=== PATIENT | female | born 1985 | race Caucasian/White ===

== ENCOUNTER 2024-06-26 09:34 | Outpatient (CLI) | payer OTHER, SELFPAY ==
--- NOTE | ~2024-06-26 | MM_ITS ---
EXAMINATION: MM screening brittany BI w frank HISTORY: Screening TECHNIQUE: Craniocaudal and mediolateral oblique 3-D tomosynthesis images were obtained and synthetic 2-D images were generated. CAD analysis was submitted and interpreted. COMPARISON: No prior mammogram is available for comparison at this institution. BREAST PARENCHYMAL COMPOSITION: Not dense: There are scattered areas of fibroglandular density. FINDINGS: There is a 4 mm mass in the lower inner quadrant of the left breast which is high density. There is no mammographic evidence for malignancy in the right breast. IMPRESSION: 1. Left breast mass lower inner quadrant measuring 4 mm. 2. Additional mammographic views and possible breast ultrasound are recommended. BI-RADS Category 0: Incomplete: Needs additional imaging evaluation. Reviewed, dictated and finalized at location B. IMPRESSION: 1. Left breast mass lower inner quadrant measuring 4 mm. 2. Additional mammographic views and possible breast ultrasound are recommended . BI-RADS Category 0: Incomplete: Needs additional imaging evaluation.
== END 2024-06-26 09:35 | disposition home or self-care (01) ==
PROVIDERS: PCP Internal Medicine; Visit Provider Obstetrics & Gynecology
DX: Z12.31 Encounter for screening mammogram for malignant neoplasm of breast (principal); R92.8 Other abnormal and inconclusive findings on diagnostic imaging of breast
CPT/HCPCS: 77063; 77067

== ENCOUNTER 2024-07-21 10:20 | Outpatient (CLI) | payer OTHER, SELFPAY ==
--- NOTE | ~2024-07-21 | MMUS_ITS ---
EXAMINATION: MM diagnostic brittany LT w frank, US breast LT limited HISTORY: Left breast mass TECHNIQUE: Additional 3-D tomosynthesis images of the left breast were performed and synthetic 2-D im ages were generated. CAD analysis was submitted and interpreted. High resolution limited left breast ultrasound was performed. COMPARISON: 06/26/2024 BREAST PARENCHYMAL COMPOSITION:Not Dense. There are scattered areas of fibroglandular density. FINDINGS: MAMMOGRAPHIC FINDINGS: Spot compression views confirm a persistent 4 mm mass at the inner left breast. ULTRASOUND: At the 11:00 position left breast, 7 cm from the nipple, there is a 4 mm round circumscribed hypoecho ic solid mass. IMPRESSION: 4 mm probable benign left breast mass, as detailed above. 6 month follow-up ultrasound recommended t o reassess. BI-RADS category 3, probably benign findings. Reviewed, dictated and finalized at [facility]. IMPRESSION: 4 mm probable benign left breast mass, as detailed above. 6 month follow-up ul trasound recommended to reassess. BI-RADS category 3, probably benign findings.
== END 2024-07-21 10:21 | disposition home or self-care (01) ==
LOC: ANHIMG 10:21
PROVIDERS: PCP Internal Medicine; Visit Provider Obstetrics & Gynecology
DX: N63.20 Unspecified lump in the left breast, unspecified quadrant (principal); R92.8 Other abnormal and inconclusive findings on diagnostic imaging of breast
CPT/HCPCS: 76642; 77061; 77065; G0279

== ENCOUNTER 2025-01-18 10:24 | Outpatient (CLI) | payer OTHER, SELFPAY ==
--- NOTE | ~2025-01-18 | US_ITS ---
US breast LT limited 01/18/2025 10:43 Indication: Follow-up left breast mass Procedure: High-resolution Limited ultrasound of the left breast Comparison: 07/21/2024 and 06/26/2024 Findings: At 11:00, 7 cm from the nipple there is an oval parallel oriented hypoechoic 3 mm mass with low-level internal echoes, posterior shadowing and no internal vascularity, stable compared with stefan or examination allowing for differences of technique. Impression: 1: Stable likely benign left breast mass measuring 3 mm at 11:00, 7 cm from the nipple. BI-RADS CATEGORY 3-PROBABLY BENIGN FINDING RECOMMENDATION: Six-month follow-up Limited left breast ultrasound and bilateral mammogram recommende d. Reviewed, dictated and finalized at location B. Impression: 1: Stable likely benign left breast mass measuring 3 mm at 11:00, 7 cm from the nipple. BI-RADS CATEGORY 3-PROBABLY BENIGN FINDING RECOMMENDATION: Six-month follow-up Limited left breast ultrasound and bilatera l mammogram recommended.
--- OUTSIDE RECORDS SUMMARY | 2025-01-18 12:30 | XMS_ITS | Data Portability ---
Author Organization [facility] [place] Address [address] [place] [address] Care Team Providers Care Pressure Tester Name Role Phone ZAKIYA MYRICK Primary Care Provider [phone] Assessment No assessment recorded. Plan of Treatment Reminders Order Date Submit Date Provider Last Modified By Organization Details Last Modified Time Details Appointments None recorded. Lab None recorded. Referral None recorded. Procedures None recorded. Surgeries None recorded. Imaging None recorded. Medication Orders Xulane 150 mcg-35 mcg/24 hr transderm al patch 2019 020 [facility], [address] [place] [address], [id number], 0 11:16:51 Patient TargetsNo targets recorded. Patient InstructionsNo instructions recorded. Reason for Referral None Reported. Procedures Surgical History Date Name Laterality Status Provider Name and Address Organization Details Recorded Time 11/04/2016 Date [facility]2020 10:53:51 11/04/[address] [facility] 03/25/2020 10:33:11 Imaging Results None recorded. Procedure Notes None recorded. Medical Equipment None Reported. Medications Name Sig Start Date Stop Date Status Note LastModified by Organization Details LastModified Time Topamax 200 mg tablet active Not Available Not Available No t Available cetirizine 10 mg tablet active Not Available Not Available No t Available azithromycin 250 mg tablet 03/25 completed Not Available Not Available Not Available ofloxacin 0.3 % eye drops active Not Available Not Available Not Available cyanocobalami n (vit B-12) 1,000 mcg tablet Take by oral route. active Not Available Not Available No t Available Calcium Antacid 200 mg (as calcium carbonate 500 mg) chewable tablet active Not Available Not Available Not Available divalproex 500 mg tablet,delaye d release 03/25 completed Not Available Not Available Not Available ketorolac 0.5 % eye drops active Not Available Not Available Not Available Deep Sea Nasal 0.65 % spray aerosol 03/25 completed Not Available Not Available Not Available famotidine 20 mg tablet Take 1 tablet twice a day by oral route. active Not Available Not Available No t Available prednisolone acetate 1 % eye drops,suspens ion active Not Available Not Available Not Available clonazepam 2 mg tablet active Not Available Not Available No t Available ibuprofen 400 mg tablet Take 1 tablet every 4 hours by oral route. active Not Available Not Available No t Available montelukast 10 mg tablet active Not Available Not Available Not Available polyethylene glycol 3350 17 gram/dose oral powder active Not Available Not Available Not Available fluticasone propionate 50 mcg/actuation nasal spray,suspens ion active Not Available Not Available Not Available Topamax 100 mg tablet active Not Available Not Available No t Available clindamycin 1 % lotion active Not Available Not Available Not Available Daily-Dali tablet active Not Available Not Available Not Available acetaminophen active Not Available Not Available Not Available Depakote active Not Available Not Avai lable Not Available nystatin-tria mcinolone active Not Available Not Available No t Available bismuth subsalicylate active Not Available Not Availabl e Not Available adapalene active Not Available Not Marika ilable Not Available Vitamin D3 active Not Available Not Av ailable Not Available norelgestromi n-ethin.estra diol active Not Available Not Available Not Available Mucinex active Not Available Not Avail able Not Available Simply Saline 0.9 % nasal spray aerosol Take by nasal route. active Not Available Not Available No t Available Keppra 1,000 mg tablet active Not Available Not Available No t Available Refresh Dry Eye Therapy active Not Available Not Available Not Available Banzel 400 mg tablet active Not Available Not Available Not Available Xulane 150 mcg-35 mcg/24 hr transdermal patch Apply patch to skin once weekly for 3 weeks then leave off for 1 week 2019 active Not Available Not Available Not Avai lable Vitals Date Recorded Body height Body mass index (BMI) Body weight Systolic blood pressure Diastolic blood pressure Provider Name and Address Organization Details Last Updated DateTime 03/25/2020 163.83 cm 36.2 kg/m2 28502.77 g 102 mm[Hg] 70 mm[Hg] Tresa De Jesus [facility] 0 10:53:33 Social History Question Answer Notes LastModified by [employer] Details LastModified Time Tobacco Smoking Status Never Smoker Tresa De Jesus null, [facility] 03/25/2020 10:55:51 What Is Your Level Of Alcohol Consumption? None Information not available 03/25/2020 Do You Or Have You Ever Used E-cigarettes Or Vape? Never Used Electronic Cigarettes Information not available 03/25/2020 Sex: Unknown Functional Status Question Answer Note LastModified by [employer] Details LastModified Time What is your exercise level? Moderate daily exercise bands and cycling Information not available 03/25/2020 Mental Status None recorded. Family History Relationship Description Onset Age of this Age Resolved Age Notes LastModified by Organization Details LastModified Time Mother Asthma jgumber Not available 10:57:47 Mother Family history of Allergy jgumber Not available 2019 10:58:12 Brother Asthma jgumber Not available 0 03/25/2020 10:57:47 Brother Family history of Allergy jgumber Not available 2019 10:58:12 Medical History Condition Response Allergies (Food, seasonal, environmental ) Y Other Y High Cholesterol Y Gynecological History Statement/Question Response Date of Last Pap Smear 11/04/2016 Current Control Method Tubal Ligat ion 16 Desired Control Method Patch Date of LMP 03/06/2020 Obstetrics History GPAL:G 0 P 0 0 0 0 Past Encounters Encounter ID Performer Location Encounter Start Date Encounter Closed Date Diagnosis/Indication Diagnosis SNOMED-CT Code Diagnosis ICD10 Code Diagnosis Note [id number] [place] [address] [address] 03/25/2020 10:30:59 03/25/2020 11:26:16 Uses transdermal contraception 971677576 Z79.3 We discussed that elevated triglyceri jessiac may increase risk of CV disease, but that alone is not a contraindi cation to hormonal contracept ion. Elevated LDL is a contraindi cation if LDL is >160, and her LDL very recently is 140. We discussed risks of control patch including elevated BP, [place], stroke, VTE. She and her mother expressed understand ing, and they both wish to continue patch. I spent 20 minutes face to face with patient and her mother with majority of time in counseling . Return in September for annual (appointme nt made for Sunday 09/23 at 11am in procedure room) Menorrhagia 089513397 N9 2.0 Periods well controlled on patch so she may continue it Health Concerns Section Related Observation LastModified by Organization Detai ls LastModified Time None Recorded Concern Status LastModified by Organization Details LastModified Time None Recorded Advance Directives Directive None Recorded Payers Encounter Date Sequence Insurance Name Policy Number Policy Ramachandran Covered Member ID Ramachandran Member ID Guarantor Name 03/25/2020 1 [facility] (MEDICAID HMO) [id number] Daniella Robles [id number] Daniella Robles Notes Date Note Type Note Provider Name and Address Organization Details Recorded Time 03/25/2020 text/html She had been on Xulane patch for years to regulate her cycles. [facility] refused to dillon it due to increased triglycerides, so she was off it for a few months. Periods were monthly lastin 7 days and very heavy 3-[address] 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 She has never been sexually active. Triglycerides have improved. LDL is mildly elevated at 140 recently. No pelvic pain [address] frey [facility] 03/25/2020 11:28:16 OBGyn Episode No OBEpisode recorded.
--- OUTSIDE RECORDS SUMMARY | 2025-01-18 12:31 | XMS_ITS | Encounter Summary ---
Author Organization [facility] Address [address] [place] [address] Phone Care Team Providers Care Line Inspector Name Role Phone Roney Arenas MD Primary Care Provider + Encounter Details Date Type Department Care Team (Late st Contact Info) Description 10/21/[address] [facility] Neurology [address] [place] [address] Hua Balderas MD [address] [place] [address] Social History Tobacco Use Types Packs/Day Years Used Date Smoking Tobacco: Never Comments Unknown Sex and Gender Information Value Date Recorded Sex Assigned at Not on file Legal Sex Female 12:10 PM [employer] Gender Identity Not on file Sexual Orientation Not on file documented as of this encounter Plan of Treatment Not on file documented as of this encounter Visit Diagnoses Not on filedocumented in this encounter Care Teams Line Inspector Relationship Specialty Start Date End Date Roney Arenas MD PCP - General Internal Medicine 08/01/18 documented as of this encounter
--- OUTSIDE RECORDS SUMMARY | 2025-01-18 12:31 | XMS_ITS | Clinical Summary ---
Author Organization [facility] Address [address] [place] [address] Phone Care Team Providers Care Burnisher Name Role Phone ELEN WHALEN, ZAKIYA Lee Primary Care Provider [phone] NAJMA WHALEN, ANTHONY Martinez Unavailable [phone] Reason for Visit and Chief Complaint * PHONE CALL Problems Includes: Problems addressed during this encounter and other active Problems All Visits Onset Date Resolved Date Provider Condition S tatus Other specified abnormal uterine and vaginal bleeding 12/28/2019 LEANNE LUGO RN N P BC Active Last Documented On 0 11:41AM ; [facility] Hyperlipidemia 12/28/2019 LEANNE LUGO RN NP BC Active Last Documented On 0 11:39AM ; [facility] Note: 02/21/19 total chol = 215, triglyce rides = 398 Epilepsy and Recurrent Seizures 09/15/2018 POLO MILLIGAN SANDY- Active Last Documented On 8 2:09PM ; [facility] Reduced Mobility Wheelchair Bound 09/15/2018 MARCO MILLIGAN SANDY-BC Active Last Documented On 8 2:07PM ; [facility] Plan of Treatment No Plan of Treatment Recorded Assessments Includes: Assessments from this encounter No Assessments Recorded Medical Equipment - Implanted Devices Includes: Current Devices No Medical Equipment Recorded Medications Includes: Medications discussed during this encounter and other current Medications Current Medications (continue as prescribed) Neosporin + Pain/Itch/Scar 1% External Ointment 2017 Provider: Diagnosis: Last Documented On 09/15/2018 2:32PM By Frances Gurrola MA ; [facility] Rulox 116-252-26KC/5ML Oral Suspension 09/15/2018 Pr ovider: Diagnosis: 30ML BY MOUTH EVERY 4 HOURS..MAX 5 DOSE IN 24 HO URS. Last Documented On 09/15/2018 2:30PM By Frances Gurrola MA ; [facility] Womens Multivitamin Oral Tablet 09/15/2018 Provider: Diagnosis: Last Documented On 09/15/2018 2:22PM By Frances Gurrola MA ; [facility] Vitamin D3 [id number] Oral Capsule, conventional Provider: Diagnosis: Last Documented On 09/15/2018 2:22PM By Frances Gurrola MA ; [facility] Bronson Cough Drops 6.1MG Mouth/Throat Lozenge 07/29/20 17 Provider: Diagnosis: Last Documented On 7 2:42PM By MIKE LAYTON ; [facility] DiphenhydrAMINE HCl 25MG Oral Capsule, conventional Provider: Diagnosis: Last Documented On 7 2:43PM By MIKE LAYTON ; [facility] SM Calcium Antacid 500MG Oral Tablet, chewable 017 Provider: Diagnosis: Last Documented On 7 2:39PM By MIKE LAYTON ; [facility] Cetirizine HCl 10MG Oral Tablet, chewable 07/29/2017 Provider: Diagnosis: Last Documented On 7 2:39PM By MIKE LAYTON ; [facility] Fluticasone Propionate 50MCG/ACT Nasal Suspension 07/29/2017 Provider: Diagnosis: Last Documented On 7 2:40PM By MIKE LAYTON ; [facility] Polyethylene Glycol 3350 Granules 07/29/2017 Provide r: Diagnosis: Last Documented On 7 2:40PM By MIKE LAYTON ; [facility] Vitamin B-12 1000MCG Oral Tablet 07/29/2017 Prov ider: Diagnosis: Last Documented On 7 2:40PM By MIKE LAYTON ; [facility] EQL Vitamin D3 1000UNIT Oral Capsule, conventional Provider: Diagnosis: Last Documented On 7 2:40PM By MIKE LAYTON ; [facility] Clindamycin Phosphate 1% External Gel (jelly) 07/29/20 17 Provider: Diagnosis: Last Documented On 7 2:41PM By MIKE LAYTON ; [facility] Adapalene 0.1% External Gel (jelly) 07/29/2017 Provi aren: Diagnosis: Last Documented On 7 2:41PM By MIKE LAYTON ; [facility] Benzonatate 200MG Oral Capsule, conventional 7 Provider: Diagnosis: Last Documented On 7 2:42PM By MIKE LAYTON ; [facility] Bismatrol 262MG Oral Tablet, chewable 07/29/2017 Pro vider: Diagnosis: Last Documented On 7 2:42PM By MIKE LAYTON ; [facility] Refresh Tears 0.5% Ophthalmic Solution 07/29/2017 Pr ovider: Diagnosis: Last Documented On 7 2:44PM By MIKE LAYTON ; [facility] Topamax 100MG Oral Tablet 07/29/2017 Provider: Diagnosis: Last Documented On 7 2:44PM By MIKE LAYTON ; [facility] Topamax 200MG Oral Tablet 07/29/2017 Provider: Diagnosis: Last Documented On 7 2:44PM By MIKE LAYTON ; [facility] Montelukast Sodium 10MG Oral Tablet 07/29/2017 Provi aren: Diagnosis: Last Documented On 7 2:45PM By MIKE LAYTON ; [facility] Ibuprofen 400MG Oral Tablet 07/29/2017 Provider: Diagnosis: Last Documented On 7 2:45PM By MIKE LAYTON ; [facility] Mapap 325MG Oral Tablet 07/29/2017 Provider: Diagnosis: Last Documented On 7 2:45PM By MIKE LAYTON ; [facility] Meclizine HCl 12.5MG Oral Tablet 07/29/2017 Provider : Diagnosis: Last Documented On 7 2:46PM By MIKE LAYTON ; [facility] Mi-Acid [id number]/5ML Oral Suspension 07/29/2017 Provider: Diagnosis: Last Documented On 7 2:46PM By MIKE LAYTON ; [facility] Polyethylene Glycol 3350 Powder 07/29/2017 Provider: Diagnosis: Last Documented On 7 2:46PM By MIKE LAYTON ; [facility] Nystatin-Triamcinolone 857349-1.1UNIT/GM-% External Cr eam 07/29/2017 Provider: Diagnosis: Last Documented On 7 2:47PM By MIKE LAYTON ; [facility]S Triple Antibiotic External Ointment 07/29/2017 P rovider: Diagnosis: Last Documented On 7 2:47PM By MIKE LAYTON ; [facility] Banzel 400MG Oral Tablet 07/29/2017 Provider: Diagnosis: Last Documented On 7 2:38PM By MIKE LAYTON ; [facility] Mucinex 600MG Oral Tablet, extended-release 12 hour Provider: Diagnosis: Last Documented On 7 2:43PM By MIKE LAYTON ; [facility] Keppra 100MG/ML Oral Solution 07/29/2017 Provider: Diagnosis: Last Documented On 7 2:43PM By MIKE LAYTON ; [facility] Divalproex Sodium 500MG Oral Tablet, enteric coated Provider: Diagnosis: Last Documented On 7 2:43PM By MIKE LAYTON ; [facility] ClonazePAM 2MG Oral Tablet 07/29/2017 Provider: Diagnosis: Last Documented On 7 2:42PM By MIKE MATSON Gricelda ; [facility] Medications Administered Includes: Administered Medications from this encounter No Administered Medications Recorded Results Includes: Results discussed during this encounter No Results Recorded For Specified Dates History of Present Illness Includes: History of Present Illness from this encounter No History of Present Illness Recorded Social History No Social History Recorded - Smoking Status Unknown Medical History Includes: Medical History addressed during this encounter No Medical History Recorded Family History Includes: Family History addressed during this encounter No Family History Recorded Review of Systems Includes: Review of Systems from this encounter No Review of Systems Recorded Mental Status Includes: Mental Status from this encounter No Mental Status Recorded Functional Status Includes: Functional Status from this encounter No Functional Status Recorded Physical Exam Includes: Physical Exam from this encounter No Physical Exam Recorded Encounters Encounter Provider Location Date Check-In Time Check-Out Time Diagnosis * PHONE CALL JAXON GARCIA MD 08/20/2017 3:32PM 11:59PM Insurance Includes: Active Insurance Policies Plan Name Member ID Group # Subscriber Relationship Effect ayah Dates 1 - [facility] [id number] GARY EASON Self Clinical Notes Includes: Clinical Notes from this encounter No Clinical Notes Recorded
--- OUTSIDE RECORDS SUMMARY | 2025-01-18 12:31 | XMS_ITS | Clinical Summary ---
Author Organization [facility] Address [address] [place] [address] Care Team Providers Care Instrument Mechanics Supervisor Name Role Phone Roney Arenas MD Primary Care Provider + Allergies Active Allergy Reactions Criticality Noted Date Comments Lorazepam Hallucinations Medium 03/05/2014 Medications adapalene (DIFFERIN) 0.1 % gel Apply topically. Active diphenhydrAMINE (BENADRYL) 25 mg capsule 12/30/19 18 Active benzonatate (TESSALON) 200 mg capsule Active bismuth subsalicylate (PEPTO-BISMOL) suspension Active calcium carbonate-simeth icone 750-80 mg tablet,chewable Take by mouth Active cetirizine (ZyrTEC) 10 mg tablet Take 1 tablet (10 mg total) by mouth Active cholecalciferol (VITAMIN D-3) 1,000 unit tablet 06/23/20 18 Active clindamycin (CLEOCIN T) 1 % lotion Apply topically. Active cyanocobalamin (Vitamin B-12) 1,000 mcg tabletIndication s:Prevention of Vitamin B12 Deficiency Take by mouth. Acti ve fluticasone (FLONASE) 50 mcg/actuation nasal spray Administer into each nostril. Active ibuprofen (ADVIL,MOTRIN) 400 mg tablet Take 1 tablet (400 mg total) by mouth every 6 (six) hours as needed Active meclizine (ANTIVERT) 25 mg tablet Active montelukast (SINGULAIR) 10 mg tablet 01/21/20 18 Active multivitamin tabletIndication s:Vitamin Deficiency Prevention 01/21/20 18 Active mag hydrox/aluminum hyd/simeth (RULOX ORAL) Active norelgestromin-e thin.estradiol (ORTHO EVRA) 150-35 mcg/24 [address]Ind[address] e[address] Contraception Place on the skin Active nystatin-triamci nolone creamIndications :cutaneous candidiasis Apply topically. Active polyethylene glycol (MIRALAX) 17 gram/dose powder Active acetaminophen (TYLENOL) 325 mg tablet Active wheelchair deviceIndication s:seizure disorder,Unstead y Gait Manual wheelchair 1 each 11/15/19 21 Active sodium chloride 0.9 % aerosol,spray Administer 2 sprays into affected nostril(s) every 4 (four) hours as needed 05/16/20 20 Active calcium citrate-vitamin D3 200 mg-6.25 mcg (250 unit) tablet Take 2 tablets by mouth daily 05/16/20 20 Active cimetidine (TAGAMET) 400 mg tablet Take 1 tablet (400 mg total) by mouth 2 (two) times a day 05/20/20 20 Active guaiFENesin ER (MUCINEX) 600 mg 12 hr tablet daily as needed Active Refresh Classic, PF, 1.4-0.6 % dropperette 09/05/20 21 Active atorvastatin (LIPITOR) 10 mg tablet Take 1 tablet (10 mg total) by mouth daily 03/19/20 22 Active BanzeL 400 mg tabletIndication s:Intractable myoclonic epilepsy (HCC) TAKE 5 TABLETS (2000MG) BY MOUTH TWICE DAILY WITH FOOD FOR INTRACTABLE MYOCLONIC EPILEPSY (7AM,5PM) 310 tablet 07/16/20 24 Active Depakote 500 mg EC tabletIndication s:Intractable myoclonic epilepsy (HCC) TAKE 1 TABLET BY MOUTH TWICE DAILY FOR SEIZURES (GIVE BEFORE GETTTING OUT OF BED IN THE AM-THEN WAIT 30MINS BEFORE GETTING OUT OF BED)(7AM,8PM) *BRAND NAME ONLY* 62 tablet 07/16/20 24 Active Keppra 1,000 mg tabletIndication s:Intractable myoclonic epilepsy (HCC) TAKE 2 TABLETS (2000MG) BY MOUTH TWICE DAILY FOR INTRACTABLE MOCLONIC EPILEPSY (GIVE BEFORE GETTING OUT OF BED IN THE AM-THEN WAIT 30MIN BEFORE GETTING OUT OF BED) (7AM,8PM) 124 tablet 07/16/20 24 Active Topamax 100 mg tabletIndication s:Intractable myoclonic epilepsy (HCC) TAKE 1 TABLET BY MOUTH TWICE DAILY WITH [id number] FOR GENERALIZED EPILEPSY *BRAND NAME ONLY*(7AM,7PM) 62 tablet 11 07/16/20 24 Active omeprazole (PriLOSEC) 40 mg capsule Take 1 capsule (40 mg total) by mouth daily 03/27/20 24 Active Tab-A-Dali 400 mcg tablet 07/05/20 24 Active clonazePAM (KlonoPIN) 0.5 mg tabletIndication s:Myoclonic Epilepsy Take one tab 30 minutes prior to MRI scan. 1 tablet 08/17/20 24 Active Topamax 200 mg tabletIndication s:Intractable myoclonic epilepsy (HCC) TAKE 1 TABLET BY MOUTH TWICE DAILY FOR MYOCLONIC EPILEPSY -GIVE BEFORE GETTING OUT OF BED IN THE AM-WAIT 30MIN BEFORE GETTING OUT OF BED (BRAND NAME ONLY) (7AM,7PM) 62 tablet 11 10/06/20 24 Active clonazePAM (KlonoPIN) 2 mg tabletIndication s:Myoclonic seizure (HCC) (CONTROL CYCLE) TAKE 1 TABLET BY MOUTH TWICE DAILY FOR MYOCLONIC SEIZURES (7AM,8PM) 60 tablet 5 12/29/19 25 Active clonazePAM (KlonoPIN) 2 mg tabletIndication s:Myoclonic seizure (HCC) (CONTROL CYCLE) TAKE 1 TABLET BY MOUTH TWICE DAILY FOR MYOCLONIC SEIZURES (7AM,8PM) 60 tablet 5 07/16/20 24 2024 Discontinued Active Problems Problem Noted Date Diagnosed Date Unilateral earache 12/23/2015 Reactive depression 09/02/2015 Nuclear senile cataract 10/21/2012 Hyperlipidemia 08/02/2009 Obesity 08/02/2009 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 There is no history of epilepsy. 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 Gender Identity Not on file Sexual Orientation Not on file Obstetrics History Last Filed Vital Signs Vital Sign Reading Time Taken Comments Blood Pressure 107/74 07/24/2024 11:36 AM CDT Pulse 73 07/24/2024 11:36 AM CDT Temperature 35.8 C (96.4 F) 05/13/2020 9:53 AM CDT Respiratory Rate - - Oxygen Saturation - - Inhaled Oxygen Concentration - - Weight 77.1 kg (170 lb) 08/22/2024 10:12 AM CDT Height 162.6 cm (5' 4 ) 08/22/2024 10:12 AM CDT Body Mass Index 29.18 08/22/2024 10:12 AM CDT Plan of Treatment Health Maintenance Due Date Last Done Comments Breast Cancer Screening-Mammogram 1985 Cervical Cancer Screening 1984 Depression Screening 1984 Hepatitis C Screening 1985 Regular Well Visit/Exam 18-64 2002 Varicella Vaccines (2 of 2 - 13+ 2-dose series) 06/24/2015 05/27/2015 Covid-19 Vaccine ( season) 2024 09/22/2022, 01/06/2021, 12/09/2020 Influenza Vaccine (#1) 2024 , 07/21/2020, 07/18/2018, Additional history exists DTaP/Tdap/Td Vaccine (8 - Td or Tdap) 11/19/2028 11/19/2018, 07/29/2009, 01/30/1999, Additional history exists Hepatitis B Screening Completed 03/30/1997 , 10/30/1996, 09/25/1996 Pneumococcal vaccine <65 Aged Out 01/05/2005, 08/05 No longer eligible based on patient's age to complete this topic HPV Vaccines Completed 08/04/2007, 06/2007, 02/07/2007 Medical Devices Implanted Type Area Wool Washer Feeder Device Identifier Shelf Expiration Date Model / Serial / Lot Orthopedic Hardware Right Ankle Ankle Insurance [facility] Advance Directives For more information, please contact: [phone] Documents on File Type Date Recorded Patient Venetian Blind Worker Expl anation ADVANCE DIRECTIVE 04/20/2022 10:39 AM Vijay r of Brake Lining Driller-Medical Care Teams Instrument Mechanics Supervisor Relationship Specialty Start Date End Date Roney Arenas MD PCP - General Internal Medicine 08/01/18
--- OUTSIDE RECORDS SUMMARY | 2025-01-18 12:31 | XMS_ITS | Referral Summary ---
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 Gender Identity Not on file Sexual Orientation Not on file Last Filed Vital Signs Vital Sign Reading [...] 08/22/2024 10:12 AM CDT Plan of Treatment Not on file Medical Devices Implanted Type Area Sheet Rock Installation Helper Device Identifier Shelf Expiration Date Model / Serial / Lot Orthopedic Hardware Right Ankle Ankle Insurance [id number] [place] [address] [facility] Advance Directives For more information, please contact: [phone] Documents on File Type Date Recorded Patient Collections Rep Expl anation ADVANCE DIRECTIVE 04/20/2022 10:39 AM Vijay r of Dampener-Medical Care Teams Drive Tester Relationship Specialty Start Date End Date Roney Arenas MD PCP - General Internal Medicine 08/01/18
--- OUTSIDE RECORDS SUMMARY | 2025-01-18 12:31 | XMS_ITS | Patient Health Record ---
Author Organization [facility] Orthopedics [facility] Address [address] [place], [place] [id number] Care Team Providers Care Oceanography Professor Name Role Phone Roney Arenas Primary Care Provider Unavail able Deanna Shin Unavailable [phone] ALLERGIES Allergen (clinical drug ingredient) Drug/Non Drug Allergy documented on EMR Reaction Allergy Type Onset Date Status lorazepam Ativan Unknown Drug Allergy Active REASON FOR REFERRAL No Information MEDICATIONS Medication SIG (Take, Route, Frequency, Duration) Notes Start Date End Date Status Divalproex Sodium Ac tive Xulane Active Calcium Carbonate Ac tive One Daily For Women Active Singulair Active Polyethylene Glycol 3350 Active Topamax Active Keppra Active Banzel Active clonazePAM Active SOCIAL HISTORY Sex Assigned At : Social History Observation Description Sex Assigned At Unknown PROBLEMS Problem Type ICD Code Onset Dates Problem Status W/U Status Risk SNOMED Code Notes Problem Pain in joint, ankle and foot (719.47) Active confirmed Arthralgia of the ankle and/or foot (520116797) Problem 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) Active confirmed 858445 Problem Right ankle instability (M25.371) Active confirmed 547037 Problem Acute right ankle pain (M25.571) Active confirmed Arthralgia of the ankle and/or foot (013100610) Problem Closed fracture of left ankle, initial encounter (S82.892A) Active confirmed 23410149 Problem Closed fracture of left ankle with routine healing, subsequent encounter (S82.892D) Active confirmed 05704488 Problem Other closed fracture of distal end of right fibula with routine healing, subsequent encounter (S82.831D) Active confirmed 421034740 PLAN OF TREATMENT Pending Test Test Name Order Date X ray : Ankle, left, 3 11/05/2018 X ray : Ankle, left, 3 01/07/2019 X ray : Ankle, left, 3 08/13/2018 X ray : Ankle, left, 3 05/09/2021 X ray : Ankle, left, 3 08/27/2018 X ray : Ankle, left, 3 05/13/2019 X ray : Ankle, left, 3 09/17/2018 X ray : Ankle, left, 3 10/08/2018 X ray : Ankle, left, 3 05/09/2020 X ray : Ankle, right, 3 05/09/2021 X ray : Ankle, right, 3 05/13/2019 X ray : Ankle, right, 3 05/09/2020 MEDICAL (GENERAL) HISTORY Medical History History ICD Code seizures Left distal fibula fracture 08/2018 Surgical History Surgery Date(Month/Year) Right Ankle - Open reduction and interna l fixation of distal fibula 09/2007 Hospitalization History Reason Date(Month/Year) same as surgeries
--- OUTSIDE RECORDS SUMMARY | 2025-01-18 12:31 | XMS_ITS ---
Care Plan - [facility] Created on: January 18, 2025 GARY EASON : 1985 Sex: Female Author Organization [facility] Address [address] [place] [address] Phone Care Team Providers Care Mexican Food Machine Tender Name Role Phone ELEN WHALEN, ZAKIYA Lee Primary Care Provider [phone] NAJMA WHALEN, ANTHONY Martinez Unavailable [phone]
--- OUTSIDE RECORDS SUMMARY | 2025-01-18 12:31 | XMS_ITS | Clinical Summary ---
Author Organization [facility] Address [address] [place] [address] Phone Care Team Providers Care Slab Conditioner Supervisor Name Role Phone ELEN WHALEN, ZAKIYA Lee Primary Care Provider [phone] NAJMA WHALEN, ANTHONY Martinez Unavailable [phone] Reason for Visit and Chief Complaint visit for: contraceptive management - The Chief Complaint is: HRT consult Pt using patch to controlcycles for past several years d/t menorrhagia and has experienced significant reduction in seizuressince beginning rx. PCP previously was prescribing rx., pt. now here for consult. Pt. previously tried combined OCP for menorrhagia sx w/o success, resulting in constant irregular bleeding. Pt. and mom deny trying DMPA d/t potential BTB and have been successful in regulating timely cycles lasting 4-5 days. Pt. admits the most sanitary items she uses 2 items/24 hours. Denies reportable CV warningsx. ass/with combined contraceptive use. Dysmenorrhea relief w/OTC Ibuprofen. Pt is able to ambulate, exercises 30 min. daily with recumbant bike as well as exercise bands Problems Includes: Problems addressed during this encounter and other active Problems Current Visit Onset Date Resolved Date Provider Conditio n Status Other specified abnormal uterine and vaginal bleeding 12/28/2019 LEANNE LUGO RN WHN P BC Active Last Documented On 0 11:41AM ; [facility] Hyperlipidemia 12/28/2019 LEANNE LEVINENP BC Active Last Documented On 0 11:39AM ; [facility] Note: 02/21/19 total chol = 215, triglyce rides = 398 Past Visits Onset Date Resolved Date Provider Condition Status Epilepsy and Recurrent Seizures 09/15/2018 POLO [place] [facility] Active Last Documented On 8 2:09PM ; [facility] Reduced Mobility Wheelchair Bound 09/15/2018 MARCO Madison [facility] Active Last Documented On 8 2:07PM ; [facility] Plan of Treatment Education and Decision Aids were provided during visit for: Patient counseling : Use of contraceptives discussed in detail including rare occurrence of heart attack, stroke, and leg clots. Patient understands that smoking increases the risk of serious side effects with any steroid-based contraceptive method Last Documented On 0 11:26AM ; [facility] control consent review ed and signed Last Documented On 0 11:28AM ; [facility] Assessments Includes: Assessments from this encounter Findings - Hyperlipidemia - Last Documented On 12/28/2019 1:02PM ; [facility] - Encounter for contraceptive surveillance, unspecified - Last Documented On 12/28/2019 1:02PM ; [facility] Instructions Includes: Instructions from this encounter Education and Decision Aids were provided during visit for: Patient counseling : Use of contraceptives discussed in detail including rare occurrence of heart attack, stroke, and leg clots. Patient understands that smoking increases the risk of serious side effects with any steroid-based contraceptive method Last Documented On 0 11:26AM ; [facility] control consent review ed and signed Last Documented On 0 11:28AM ; [facility] Medical Equipment - Implanted Devices Includes: Current Devices No Medical Equipment Recorded Medications Includes: Medications discussed during this encounter and other current Medications Discontinued / Stopped on this date on 09/15/2018 Diabetic Siltussin JOHN-Na 10 0MG/5ML Oral Liquid (not specified) Provider: Diagnosis: Last Documented On 0 11:08AM By LEANNE CASANOVA ; [facility] Diabetic Siltussin JOHN-Na 10 0MG/5ML Oral Liquid (not specified) Provider: Diagnosis: Last Documented On 0 10:36AM By LEANNE CASANOVA ; [facility] Current Medications (continue as prescribed) Neosporin + Pain/Itch/Scar 1% External Ointment 2017 Provider: Diagnosis: Last Documented On 09/15/2018 2:32PM By Frances Gurrola MA ; [facility] Rulox [id number]/5ML Oral Suspension 09/15/2018 Pr ovider: Diagnosis: 30ML BY MOUTH EVERY 4 HOURS..MAX 5 DOSE IN 24 HO URS. Last Documented On 09/15/2018 2:30PM By Frances Gurrola MA ; [facility] Womens Multivitamin Oral Tablet 09/15/2018 Provider: Diagnosis: Last Documented On 09/15/2018 2:22PM By Frances Gurrola MA ; [facility] Vitamin D3 [id number] Oral Capsule, conventional Provider: Diagnosis: Last Documented On 09/15/2018 2:22PM By Frances Gurrola MA ; [facility] Bronson Cough Drops 6.1MG Mouth/Throat Lozenge 07/29/20 17 Provider: Diagnosis: Last Documented On 7 2:42PM By MIKE LAYTON ; [facility] DiphenhydrAMINE HCl 25MG Oral Capsule, conventional Provider: Diagnosis: Last Documented On 7 2:43PM By MIKE LAYTON ; [facility] SM Calcium Antacid 500MG Oral Tablet, chewable 017 Provider: Diagnosis: Last Documented On 7 2:39PM By MIKE LAYTON ; [facility] Cetirizine HCl 10MG Oral Tablet, chewable 07/29/2017 Provider: Diagnosis: Last Documented On 7 2:39PM By MIKE LAYTON ; [facility] Fluticasone Propionate 50MCG/ACT Nasal Suspension 07/29/2017 Provider: Diagnosis: Last Documented On 7 2:40PM By MIKE LAYTON ; [facility] Polyethylene Glycol 3350 Granules 07/29/2017 Provide r: Diagnosis: Last Documented On 7 2:40PM By MIKE LAYTON ; [facility] Vitamin B-12 1000MCG Oral Tablet 07/29/2017 Prov ider: Diagnosis: Last Documented On 7 2:40PM By MIKE LAYTON ; [facility] EQL Vitamin D3 1000UNIT Oral Capsule, conventional Provider: Diagnosis: Last Documented On 7 2:40PM By MIKE LAYTON ; [facility] Clindamycin Phosphate 1% External Gel (jelly) 07/29/20 Provider: Diagnosis: Last Documented On 7 2:41PM By MIKE LAYTON ; [facility] Adapalene 0.1% External Gel (jelly) 07/29/2017 Provi aren: Diagnosis: Last Documented On 7 2:41PM By MIKE LAYTON ; [facility] Benzonatate 200MG Oral Capsule, conventional Provider: Diagnosis: Last Documented On 7 2:42PM By MIKE LAYTON ; [facility] Bismatrol 262MG Oral Tablet, chewable 07/29/2017 Pro vider: Diagnosis: Last Documented On 7 2:42PM By MIKE LAYTON ; [facility] Refresh Tears 0.5% Ophthalmic Solution 07/29/2017 Pr ovider: Diagnosis: Last Documented On 7 2:44PM By MIKE LAYTON ; [facility] Topamax 100MG Oral Tablet 07/29/2017 Provider: Diagnosis: Last Documented On 7 2:44PM By MIKE LAYTON ; [facility] Topamax 200MG Oral Tablet 07/29/2017 Provider: Diagnosis: Last Documented On 7 2:44PM By MIKE LAYTON ; [facility] Montelukast Sodium 10MG Oral Tablet 07/29/2017 Provi aren: Diagnosis: Last Documented On 7 2:45PM By MIKE LAYTON ; [facility] Ibuprofen 400MG Oral Tablet 07/29/2017 Provider: Diagnosis: Last Documented On 7 2:45PM By MIKE LAYTON ; [facility] Mapap 325MG Oral Tablet 07/29/2017 Provider: Diagnosis: Last Documented On 7 2:45PM By MIKE LAYTON ; [facility] Meclizine HCl 12.5MG Oral Tablet 07/29/2017 Provider : Diagnosis: Last Documented On 7 2:46PM By MIKE LAYTON ; [facility] Mi-Acid [id number]/5ML Oral Suspension 07/29/2017 Provider: Diagnosis: Last Documented On 7 2:46PM By MIKE LAYTON ; [facility] Polyethylene Glycol 3350 Powder 07/29/2017 Provider: Diagnosis: Last Documented On 7 2:46PM By MIKE LAYTON ; [facility] Nystatin-Triamcinolone 221994-1.1UNIT/GM-% External Cr eam 07/29/2017 Provider: Diagnosis: Last Documented On 7 2:47PM By MIKE LAYTON ; [facility] Triple Antibiotic External Ointment 07/29/2017 Vincent harrisder: Diagnosis: Last Documented On 7 2:47PM By MIKE LAYTON ; [facility] Banzel 400MG Oral Tablet 07/29/2017 Provider: Diagnosis: Last Documented On 7 2:38PM By MIKE LYATON ; [facility] Mucinex 600MG Oral Tablet, extended-release 12 hour Provider: Diagnosis: Last Documented On 7 2:43PM By MIKE LAYTON ; [facility] Keppra 100MG/ML Oral Solution 07/29/2017 Provider: Diagnosis: Last Documented On 7 2:43PM By MIKE LAYTON ; [facility] Divalproex Sodium 500MG Oral Tablet, enteric coated Provider: Diagnosis: Last Documented On 7 2:43PM By MIKE LAYTON ; [facility] ClonazePAM 2MG Oral Tablet 07/29/2017 Provider: Diagnosis: Last Documented On 7 2:42PM By MIKE LAYTON ; [facility] Medications Administered Includes: Administered Medications from this encounter No Administered Medications Recorded Vital Signs Includes: Vital Signs from this encounter Vital Name 12/28/2019 10:23A 12/28/2019 10: 15A Blood Pressure Sitting (mmHg) 112/70 Height (in) 64 64 Weight (lb) 206 Body Mass Index (kg/m2) 35.4 Body Surface Area (m2) 2.0 Last Documented: On 12/28/2019 10:27A M ; [facility] On 12/28/2019 10:15AM ; [facility] Results Includes: Results discussed during this encounter No Results Recorded For Specified Dates History of Present Illness Includes: History of Present Illness from this encounter DESTINY EASON is a 34 year old female. The patient presents for contraceptive management. See details below. - Feeling fine. - No headache. - No breast symptoms. - No bloating - No jaundice - Normal menses Social History Description Last Updated Not sexually active 12/28/2019 Last Documented On 0 1:02PM ; [facility] Not using alcohol 09/21/2019 Last Documented On 0 10:14AM ; [facility] Not using drugs 09/21/2019 Last Documented On 0 10:14AM ; [facility] Social history unchanged 09/21/2019 Last Documented On 0 10:14AM ; [facility] Smoking status : Never smoker 09/21/2019 Last Documented On 0 10:14AM ; [facility] Procedures and Surgical History Includes: Procedures from this encounter Procedures Code Diagnosis Performing Provider Service Location Service Date education and instructions Pt. and mother informed that cont. patch use w/o controlled hyperlipidemia places pt. at very high risk for CV incident, and that no further rx can be sent per Dr. Go's protocols unless significant reduction in serology results is seen. To consider progestin only rx vs. US and EMB for possible ablation Last Documented On 0 12:54PM ; [facility] evaluation of contraceptive history perf ormed Last Documented On 0 11:28AM ; [facility] education about contraception performed Last Documented On 0 11:28AM ; [facility] reporting of contraception complications performed Last Documented On 0 11:28AM ; [facility] Clinical summary provided to patient Last Documented On 0 11:26AM ; [facility] Surgical History Last Updated History of tubal ligation 2002 0 Last Documented On 0 1:02PM ; [facility] Surgical / procedural histor y ankle fracture repair 2006---fell during seizure ~tubal ligation 2002 ~ ~3 ankle fractures, 2 w/o(?) surgeries---during seizure falls ~cateract left eye 09/15/2018 Last Documented On 0 10:13AM ; [facility] Tonsillectomy 09/15/2018 Last Documented On 0 10:13AM ; [facility] Medical History Includes: Medical History addressed during this encounter Description Last Updated PRIMARY CARE PROVIDER : Dr. Arenas, neuro Dr. Hua CROOKS 12/28/2019 Last Documented On 0 1:02PM ; [facility] LMP: 12/24/2019 12/28/2019 Last Documented On 0 1:02PM ; [facility] Contraception: tubal 12/28/2019 Last Documented On 0 1:02PM ; [facility] History of Pap smear done 07/31/201712/06 Last Documented On 0 1:02PM ; [facility] Recent change in medical history having cateract surg 09-25-19 09/21/2019 Last Documented On 0 10:13AM ; [facility] Not sexually active 09/21/2019 Last Documented On 0 10:13AM ; [facility] History of hyperlipidemia due to siezure meds 09/15/2018 Last Documented On 0 10:13AM ; [facility] Pt's mother, grandmother, an d great-grandmother had condition called hemorrhaging menses ~ ~Pt maternal aunt had endometrial cancer 07/29/2017 Last Documented On 0 10:13AM ; [facility] 0 07/29/2017 Last Documented On 0 10:13AM ; [facility] Family History Includes: Family History addressed during this encounter Description Last Updated Family history unchanged 09/21/2019 Last Documented On 0 10:13AM ; [facility] Maternal aunt's history of uterine cance r maternal aunt 09/15/2018 Last Documented On 0 10:13AM ; [facility] Maternal grandmother's history of diabet es mellitus maternal grandparents 09/15/2018 Last Documented On 0 10:13AM ; [facility] Maternal grandmother's history of hypert ension maternal grandparetns 09/15/2018 Last Documented On 0 10:13AM ; [facility] Paternal grandfather's history of pure h ypercholesterolemia pgf 09/15/2018 Last Documented On 0 10:13AM ; [facility] Paternal history of family history of he art disease mgf 09/15/2018 Last Documented On 0 10:13AM ; [facility] Review of Systems Includes: Review of Systems from this encounter Head: No headache. Eyes: No vision problems. Cardiovascular: No chest pain or discomfort. Pulmonary: No dyspnea. Gastrointestinal: No nausea, no vomiting, and no abdominal pain. DENIES ARM OR LEG PAIN ON HORMONAL CONTRACEPTION. Mental Status Includes: Mental Status from this encounter No Mental Status Recorded Functional Status Includes: Functional Status from this encounter No Functional Status Recorded Physical Exam Includes: Physical Exam from this encounter Encounters Encounter Provider Location Date Check-In Time Check-Out Time Diagnosis CONSULTATION LEANNE LUGO RN NP [facility] 12/28/19 20 10:13AM 11:01AM Encounter For Contraceptive Surveillance, Unspecified,Hype rlipidemia Insurance Includes: Active Insurance Policies Plan Name Member ID Group # Subscriber Relationship Effect ayah Dates 1 - [facility] [id number] GARY EASON Self Clinical Notes Includes: Clinical Notes from this encounter No Clinical Notes Recorded
--- OUTSIDE RECORDS SUMMARY | 2025-01-18 12:31 | XMS_ITS | Clinical Summary ---
Author Organization [facility] Address [address] [place] [address] Phone Care Team Providers Care Editor Managing Director Name Role Phone ELEN WHALEN, ZAKIYA Lee Primary Care Provider [phone] NAJMA WHALEN, ANTHONY Martinez Unavailable [phone] Reason for Visit and Chief Complaint gynecologic annual exam - The Chief Complaint is: Annual exam Problems Includes: Problems addressed during this encounter and other active Problems All Visits Onset Date Resolved Date Provider Condition S tatus Other specified abnormal uterine and vaginal bleeding 12/28/2019 LEANNE LUGO RN N P BC Active Last Documented On 0 11:41AM ; [facility] Hyperlipidemia 12/28/2019 LEANNE LUGO RN NP BC Active Last Documented On 0 11:39AM ; [facility] Note: 02/21/19 total chol = 215, triglyce rides = 398 Epilepsy and Recurrent Seizures 09/15/2018 POLO MILLIGAN SANDY-BC Active Last Documented On 8 2:09PM ; [facility] Reduced Mobility Wheelchair Bound 09/15/2018 MARCO MILLIGAN SANDY-BC Active Last Documented On 8 2:07PM ; [facility] Plan of Treatment Contraception: not needed since not sexually active Continue Xulane (generic ortho evra) for cycle control - Last Documented On 07/29/2017 4:51PM ; [facility] Instructions to patient Instructions for patient : B reast Self Exam discussed Last Documented On 7 3:45PM ; [facility] Education and Decision Aids were provided during visit for: STD screening offered and de clined Last Documented On 7 3:45PM ; [facility] Assessments Includes: Assessments from this encounter Findings - Routine pelvic exam - Last Documented On 07/29/2017 4:51PM ; [facility] Instructions Includes: Instructions from this encounter Instructions to patient Instructions for patient : B reast Self Exam discussed Last Documented On 7 3:45PM ; [facility] Education and Decision Aids were provided during visit for: STD screening offered and de clined Last Documented On 7 3:45PM ; [facility] Medical Equipment - Implanted Devices Includes: Current Devices No Medical Equipment Recorded Medications Includes: Medications discussed during this encounter and other current Medications Current Medications (continue as prescribed) Neosporin + Pain/Itch/Scar 1% External Ointment 2017 Provider: Diagnosis: Last Documented On 09/15/2018 2:32PM By Frances Gurrola MA ; [facility] Rulox [id number]/5ML Oral Suspension 09/15/2018 Pr ovider: Diagnosis: 30ML BY MOUTH EVERY 4 HOURS..MAX 5 DOSE IN 24 HO URS. Last Documented On 09/15/2018 2:30PM By Frances Gurrola MA ; [facility] Womens Multivitamin Oral Tablet 09/15/2018 Provider: Diagnosis: Last Documented On 09/15/2018 2:22PM By Frances Gurrola MA ; [facility] Vitamin D3 [id number] Oral Capsule, conventional Provider: Diagnosis: Last Documented On 09/15/2018 2:22PM By Frances Gurrola MA ; [facility] Bronson Cough Drops 6.1MG Mouth/Throat Lozenge 07/29/20 17 Provider: Diagnosis: Last Documented On 7 2:42PM By MIKE LAYTON ; [facility] DiphenhydrAMINE HCl 25MG Oral Capsule, conventional Provider: Diagnosis: Last Documented On 7 2:43PM By MIKE LAYTON ; [facility] SM Calcium Antacid 500MG Oral Tablet, chewable 017 Provider: Diagnosis: Last Documented On 7 2:39PM By MIKE LAYTON ; [facility] Cetirizine HCl 10MG Oral Tablet, chewable 07/29/2017 Provider: Diagnosis: Last Documented On 7 2:39PM By MIKE LAYTON ; [facility] Fluticasone Propionate 50MCG/ACT Nasal Suspension 07/29/2017 Provider: Diagnosis: Last Documented On 7 2:40PM By MIKE LAYTON ; [facility] Polyethylene Glycol 3350 Granules 07/29/2017 Provide r: Diagnosis: Last Documented On 7 2:40PM By MIKE LAYTON ; [facility] Vitamin B-12 1000MCG Oral Tablet 07/29/2017 Prov ider: Diagnosis: Last Documented On 7 2:40PM By MIKE LAYTON ; [facility] EQL Vitamin D3 1000UNIT Oral Capsule, conventional Provider: Diagnosis: Last Documented On 7 2:40PM By MIKE LAYTON ; [facility] Clindamycin Phosphate 1% External Gel (jelly) 07/29/20 17 Provider: Diagnosis: Last Documented On 7 2:41PM By MIKE LAYTON ; [facility] Adapalene 0.1% External Gel (jelly) 07/29/2017 Provi aren: Diagnosis: Last Documented On 7 2:41PM By MIKE LAYTON ; [facility] Benzonatate 200MG Oral Capsule, conventional 7 Provider: Diagnosis: Last Documented On 7 2:42PM By MIKE LAYTON ; [facility] Bismatrol 262MG Oral Tablet, chewable 07/29/2017 Pro vider: Diagnosis: Last Documented On 7 2:42PM By MIKE LAYTON ; [facility] Refresh Tears 0.5% Ophthalmic Solution 07/29/2017 Pr ovider: Diagnosis: Last Documented On 7 2:44PM By MIKE LAYTON ; [facility] Topamax 100MG Oral Tablet 07/29/2017 Provider: Diagnosis: Last Documented On 7 2:44PM By MIKE LAYTON ; [facility] Topamax 200MG Oral Tablet 07/29/2017 Provider: Diagnosis: Last Documented On 7 2:44PM By MIKE LAYTON ; [facility] Montelukast Sodium 10MG Oral Tablet 07/29/2017 Provi aren: Diagnosis: Last Documented On 7 2:45PM By MIKE LAYTON ; [facility] Ibuprofen 400MG Oral Tablet 07/29/2017 Provider: Diagnosis: Last Documented On 7 2:45PM By MIKE LAYTON ; [facility] Mapap 325MG Oral Tablet 07/29/2017 Provider: Diagnosis: Last Documented On 7 2:45PM By MIKE LAYTON ; [facility] Meclizine HCl 12.5MG Oral Tablet 07/29/2017 Provider : Diagnosis: Last Documented On 7 2:46PM By MIKE LAYTON ; [facility] Mi-Acid [id number]/5ML Oral Suspension 07/29/2017 Provider: Diagnosis: Last Documented On 7 2:46PM By MIKE LAYTON ; [facility] Polyethylene Glycol 3350 Powder 07/29/2017 Provider: Diagnosis: Last Documented On 7 2:46PM By MIKE LAYTON ; [facility] Nystatin-Triamcinolone 429645-1.1UNIT/GM-% External Cr eam 07/29/2017 Provider: Diagnosis: Last Documented On 7 2:47PM By MIKE LAYTON ; [facility] Triple Antibiotic External Ointment 07/29/2017 P rovider: Diagnosis: Last Documented On 7 2:47PM By MIKE LAYTON ; [facility] Banzel 400MG Oral Tablet 07/29/2017 Provider: Diagnosis: Last Documented On 7 2:38PM By MIKE LAYTON ; [facility] Mucinex 600MG Oral Tablet, extended-release 12 hour Provider: Diagnosis: Last Documented On 7 2:43PM By MIKE LAYTON ; [facility] Keppra 100MG/ML Oral Solution 07/29/2017 Provider: Diagnosis: Last Documented On 7 2:43PM By MIKE LAYTON ; [facility] Divalproex Sodium 500MG Oral Tablet, enteric coated Provider: Diagnosis: Last Documented On 7 2:43PM By MIKE LAYTON ; [facility] ClonazePAM 2MG Oral Tablet 07/29/2017 Provider: Diagnosis: Last Documented On 7 2:42PM By MIKE LAYTON ; [facility] Medications Administered Includes: Administered Medications from this encounter No Administered Medications Recorded Vital Signs Includes: Vital Signs from this encounter Vital Name 07/29/2017 02:56P Blood Pressure Sitting (mmHg) 90/60 Pulse Rate-Sitting (bpm) 92 Height (in) 65.5 Weight (lb) 219.4 Body Mass Index (kg/m2) 36.0 Body Surface Area (m2) 2.1 Last Documented: On 07/29/2017 3:05PM ; [facility] Results Includes: Results discussed during this encounter No Results Recorded For Specified Dates History of Present Illness Includes: History of Present Illness from this encounter HPI GARY EASON is a 32 year old female. - Medication list reviewed. - No unusual bleeding starts the 3rd week of path and bleeding 5-7 days, not terribly heavy, has been on patch since teenager. OCP made her nauseous. - No pelvic pain. - No vaginal discharge. She has never been sexually active. She lives in intermediate with 3 female roommates and all the workers there are also female. Her mom is her legal guardian, and she gets her every weekend Social History Description Last Updated In monogamous relationship 07/29/2017 Last Documented On 7 4:51PM ; [facility] Sexually active 07/29/2017 Last Documented On 7 4:51PM ; [facility] Alcohol use: 2 drinks or less per day ne annelise 07/29/2017 Last Documented On 7 4:51PM ; [facility] Non-smoker 07/29/2017 Last Documented On 7 4:51PM ; [facility] Smoking status : Never smoker 07/29/2017 Last Documented On 7 4:51PM ; [facility] Procedures and Surgical History Includes: Procedures from this encounter Procedures Code Diagnosis Performing Provider Service L ocation Service Date Clinical summary provided to patient Last Documented On 7 3:45PM ; [facility] cervical Pap smear 96703 Last Documented On 7 3:45PM ; [facility] Surgical History Last Updated Surgical / procedural histor y ankle fracture repair 2006---fell during seizure ~tubal ligation 2002 ~ ~3 ankle fractures, 2 w/o(?) surgeries---during seizure falls 07/29/2017 Last Documented On 7 4:51PM ; [facility] Medical History Includes: Medical History addressed during this encounter Description Last Updated Pt's mother, grandmother, an d great-grandmother had condition called hemorrhaging menses ~ ~Pt maternal aunt had endometrial cancer 07/29/2017 Last Documented On 7 4:51PM ; [facility] A colonoscopy was performed none 017 Last Documented On 7 4:51PM ; [facility] Last pap smear date 02/22/2014 07/29/2017 Last Documented On 7 4:51PM ; [facility] Contraception: tubal 07/29/2017 Last Documented On 7 4:51PM ; [facility] LMP: 07/10/2017 07/29/2017 Last Documented On 7 4:51PM ; [facility] Patient recently had a dexa scan 007 07/29/2017 Last Documented On 7 4:51PM ; [facility] 0 07/29/2017 Last Documented On 7 4:51PM ; [facility] Family History Includes: Family History addressed during this encounter No Family History Recorded Review of Systems Includes: Review of Systems from this encounter Systemic: No recent weight change. Head: No headache. Eyes: No vision problems. Otolaryngeal: No hoarseness. Cardiovascular: No chest pain or discomfort and no palpitations. Pulmonary: No shortness of breath. Gastrointestinal: Normal appetite. No nausea, no vomiting, and no hematochezia. No diarrhea and no constipation. Genitourinary: No nocturia. No urinary loss of control and no dysuria. Musculoskeletal: No arthralgias and no localized joint swelling. Neurological: No tingling and no numbness. Psychological: No anxiety, no depression, and no sleep disturbances. Mental Status Includes: Mental Status from this encounter Description No anxiety Functional Status Includes: Functional Status from this encounter No Functional Status Recorded Physical Exam Includes: Physical Exam from this encounter Encounters Encounter Provider Location Date Check-In Time Check-Out Time Diagnosis NEW NETBACKUP ADMIN EXAM JAXON GARCIA MD [facility] 07/29/20 17 2:15PM 4:01PM Routine Pelvic Exam Insurance Includes: Active Insurance Policies Plan Name Member ID Group # Subscriber Relationship Effect ayah Dates 1 - [facility] [id number] GARY EASON Self Clinical Notes Includes: Clinical Notes from this encounter No Clinical Notes Recorded
--- OUTSIDE RECORDS SUMMARY | 2025-01-18 12:31 | XMS_ITS | Clinical Summary ---
Author Organization [facility] Address [address] [place] [address] Care Team Providers Care Coordinator Of Rehabilitation Services Name Role Phone Roney Arenas MD Primary Care Provider [phone] Allergies Active Allergy Reactions Criticality Noted Date Comments Lorazepam Hallucinations Medium 03/05/2014 Medications Calcium Citrate-Vitamin D (CITRACAL PETITES/VITAMIN D OR) Take 2 tablets by mouth daily. Active vitamin D3, cholecalciferol, 25 mcg capsule Take 1 capsule (1,000 Units total) by mouth daily. Active vitamin B-12 (CYANOCOBALAMIN) 1000 mcg tablet Take 1 tablet (1,000 mcg total) by mouth daily. Active guaiFENesin ER 600 MG 12 hr tablet Take 2 tablets (1,200 mg total) by mouth 2 (two) times daily. Active polyethylene glycol powder Take 17 g by mouth as needed. Dissolve powder in 240 mL water Active rufinamide (BANZEL) 200 MG Tab Take 10 tablets (2,000 mg total) by mouth 2 (two) times daily. Active Cetirizine HCl 10 MG Cap Active clonazePAM 1 MG tabletIndications :Epilepsy Take 2 tablets (2 mg total) by mouth 2 (two) times a day. Indications: Epilepsy Active divalproex EC 500 MG tablet Take 1 tablet (500 mg total) by mouth 2 (two) times daily. Active fluticasone propionate 50 MCG/ACT nasal spray 2 sprays by Each Nostril route daily. Active levETIRAcetam (KEPPRA) 1000 MG tablet Take 2 tablets (2,000 mg total) by mouth 2 (two) times daily. Active montelukast 10 MG tablet Take 1 tablet (10 mg total) by mouth nightly at bedtime. Active topiramate (TOPAMAX) 100 MG tablet Take 1 tablet (100 mg total) by mouth 2 (two) times daily. Active norelgestromin-et hinyl estradiol (ORTHO EVRA) 150-35 MCG/24HR packet Place 1 patch onto the skin once a week. Active acetaminophen 325 MG tablet Take 2 tablets (650 mg total) by mouth every 6 (six) hours as needed for Pain. Active Bismuth Subsalicylate (BISMATROL OR) Take by mouth as needed. Active diphenhydrAMINE 25 MG tablet Take 1 tablet (25 mg total) by mouth every 6 (six) hours as needed for Itching. Active guaifenesin 100 MG/5ML solution Take 10 mLs (200 mg total) by mouth every 4 (four) hours as needed for Cough. Active ibuprofen 400 MG tablet Take 1 tablet (400 mg total) by mouth every 6 (six) hours as needed for Pain. Active Alum & Mag Hydroxide-Simeth (RULOX OR) Take by mouth as needed. Active nystatin-triamcin olone cream Apply topically 4 (four) times daily. Active neomycin-bacitrac in-polymyxin 5-400-5000 Ointment Apply topically 4 (four) times daily. Active adapalene 0.1 % cream Apply topically nightly at bedtime. Active Multiple Vitamins-Minerals (MULTIVITAMIN ADULT OR) Active polyvinyl alcohol 1% - povidone 0.6% 1.4-0.6 % ophthalmic solution Active ketorolac 0.5 % ophthalmic solution INSTILL 1 DROP THREE TIMES DAILY INTO SURGICAL EYE STARTING 2 DAYS BEFORE SURGERY CONTINUING FOR 2 WEEKS OR UNTIL GONE 9 Active ofloxacin 0.3 % ophthalmic solution INSTILL 1 DROP INTO SURGICAL EYE 3 TIMES DAILY STARTING 2 DAYS PRIOR TO SURGERY 9 Active prednisoLONE acetate 1 % ophthalmic suspension INSTILL 1 DROP THREE TIMES DAILY INTO AFFECTED EYE STARTING AFTER SURGERY 9 Active topiramate (TOPAMAX) 200 MG tablet Take 1 tablet (200 mg total) by mouth 2 (two) times daily. Active clindamycin 1 % lotion Active Throat Lozenges (LARSON COUGH DROPS) 6.1 MG Lozenge 6 Active montelukast 10 MG tablet Take 1 tablet (10 mg total) by mouth. Active REFRESH PLUS 0.5 % ophthalmic solution Place 1 drop into both eyes 2 (two) times daily. 3 Active cenobamate (XCOPRI) tablet Take 1 tablet (50 mg total) by mouth daily. Active atorvastatin (LIPITOR) 10 MG tablet Take 1 tablet (10 mg total) by mouth daily. 3 Active Active Problems Problem Noted Date Diagnosed Date Contusion of left knee, initial encounter 2022 Assessment & Plan (08/05/2023 6:03 PM CDT): Recommendation at this time, continue with her home exercises. We'll see her back as needed. Contusion of left foot, initial encounter [address] atus epilepticus, unspecified epilepsy type ([facility]/HCC) 06/05/2023 Resolved Problems Problem Noted Date Diagnosed Date Resolved Date Right ankle sprain 06/04/2023 3 Assessment & Plan (06/25/2023 7:59 PM CDT): Recommendation at this time. Try to get her out of the fracture boots and into an air cast. We'll see her back in about four weeks. Assessment & Plan (06/04/2023 4:17 PM CDT): Sprain, about the ankle. Possible hairline fracture. At this time, we will allow her to weight-bear as tolerated in the fracture boot. We will follow-up in 2 weeks for repeat evaluation and x-rays or sooner if new concerns arise. Encounters Date Type Department Care Team Description 11/19/2024 8:44 AM NETWORK ANALYST - 11/19/2024 11:59 PM [facility] Hospital Encounter [facility] [address] [place] [address] Roney Arenas MD Discharge Disposition: Home or Self Care (Routine Discharge) 11/19/2024 Orders Only [facility] [address] [place] [address] Roney Arenas MD from Last 3 Months Immunizations Name Administration Dates Next Due Dtap (Acel-Immune) 07/29/2009, 9,11/29/1985,10/30,1984,1984 H1N1 2009 Influenza Vaccine 09/04/2009 HPV4 (Gardasil) 08/04/2007,04/11/2007,02/07/2007 Hepatitis A (Havrix [address]) 12/06/1997,1996,12/16/1996 Hepatitis B (Generic: Adult) 03/30/1997,10/30/19 96,09/25/1996 Hib (Omni-Hib) 04/12/1986 Influenza (Generic) 07/21/2020, 7,07/29/2009,08/17,09/21/2003,09/05/1999,08/15/1998 ,08/26/1997 Influenza Adult (Generic) 07/28/2022,,09/10/2016,08/05,07/25/2013 MMR (MMRII) 04/28/1992,07/29/1985 MODERNA COVID-19 (12+) MRNA, LNP-S, PF, 100 MCG/ 0.5 ML DOSE 09/22/2022,01/06/2021,12/09/2020 Meningococcal (Menactra) 05/24/2005 Pneumococcal (Pneumovax 23) 01/05/2005 Pneumococcal (Prevnar 20) 03/29/2023 Pneumococcal (Prevnar 7) 08/27/1996 Polio Opv (Generic) 04/30/1989, 6,1984,06/13 Td (TDVAX) 01/30/1999 Tdap (Generic) 11/19/2018 Varicella (Varivax) 05/27/2015 Family History Medical History Relation Comments Heart Disease Father Hypertension Father Relation Status Comments Father Mother Alive Social History Tobacco Use Types Packs/Day Years Used Date Smoking Tobacco: Never Smokeless Tobacco: Never Tobacco Cessation:Counseling Given: No Comments:na Alcohol Use Standard Drinks/Week Comments No 0 (1 standard drink = 0.6 oz pur e alcohol) AUDIT-C Answer Date Recorded Frequency of Alcohol Consumption Never 09/21/2019 Average Number of Drinks Not on file 019 Frequency of Binge Drinking Not on file 09/04 PHQ-2 Answer Date Recorded Patient Health Questionnaire-2 Score 0 10/06/2024 Hunger Vital Sign Answer Date Recorded Within the past 12 months, y ou worried that your food would run out before you got the money to buy more. Never true 07/27/20 24 Within the past 12 months, t he food you bought just didn't last and you didn't have money to get more. Never true 07/27/2024 Comments No Sex and Gender Information Value Date Recorded Sex Assigned at Not on file Legal Sex Female 8:09 PM CDT Gender Identity Not on file Sexual Orientation Not on file Last Filed Vital Signs Vital Sign Reading Time Taken Comments Blood Pressure 104/68 10/06/2024 9:03 AM NETWORK ANALYST Pulse 84 10/06/2024 9:03 AM NETWORK ANALYST Temperature 36.4 C (97.5 F) 10/06/2024 9:03 AM NETWORK ANALYST Respiratory Rate 16 10/06/2024 9:03 AM NETWORK ANALYST Oxygen Saturation 97% 10/06/2024 9:03 AM NETWORK ANALYST Inhaled Oxygen Concentration - - Weight 88.9 kg (196 lb) 06/01/2023 11:10 AM CDT Height 162.6 cm (5' 4 ) 10/06/2024 9:03 AM NETWORK ANALYST Body Mass Index 33.64 06/01/2023 11:10 AM CDT Plan of Treatment Health Maintenance Due Date Last Done Comments Annual Physical 1987 Cervical Cancer Screening Pap Smear (Age 30 to 64) Every 3 Years 11/11/2023 11/11/2020, 11/11/2020 Mammogram Screening 2024 COVID-19 Vaccine ( season) 2024 09/22/2022, 02/10/2022, 09/02/2021, Additional history exists Influenza Adult (#1) 2024 07/28/2022, 07/21/2020, 07/18/2018, Additional history exists PHQ-2 (Physician [place]) 11/04/2024 10/06/2024 Cervical Cancer Screening Pap with HPV Testing (Age 30 to 64) Every 5 Years 11/11/2025 11/11/2020, 11/11/2020 Cervical Cancer Screening with HPV 11/11/2025 DTaP, Tdap and Td Vaccines (8 - Td or Tdap) 11/19/2028 11/19/2018, 07/29/2009, 01/30/1999, Additional history exists Hepatitis B Vaccines Completed 03/30/1997, 10/30/1996, 09/25/1996 Meningococcal Vaccine Aged Out 05/24/2005 No kim nirav eligible based on patient's age to complete this topic HPV Vaccines Completed 08/04/2007, 06/2007, 02/07/2007 Pneumococcal Vaccine: Pediatrics (0 to 5 Years) and At-Risk Patients (6 to 64 Years) Aged Out 03/29/2023, 01/05/2005, 08/27/1996 No longer eligible based on patient's age to complete this topic Hepatitis C Completed 03/27/2024 Meningococcal B Vaccine Aged Out No l onger eligible based on patient's age to complete this topic RSV Immunizations Under 20 Months Aged Out No longer eligible based on patient's age to complete this topic Medical Devices Implanted Type Area [employer] Specialist Device Identifier Shelf Expiration Date Model / Serial / Lot Iol Ag [id number] - [id number] Implanted:Qty: 1 on 09/25/2019 by Elie Hoover MD at [facility] ANTOINETTE Lens Right: Eye AG - SURGICAL DIV 11/03/2020 [id number] / [id number] / Plate Plate Right: Ankle Description:PLATE AND SCREWS Procedures Procedure Name Priority Date/Time Associated Diagnosis Comments HC URINALYSIS AUTO W/O MICRO Routine 11/19/2024 8:23 AM NETWORK ANALYST Dysuria from Last 3 Months Results * (ABNORMAL) URINALYSIS (11/19/2024 8:23 AM NETWORK ANALYST) COLOR (U) YELLOW 11/19/2024 10:24 AM NETWORK ANALYST [facility] TRANSPARENCY CLEAR 11/19/2024 10:24 AM NETWORK ANALYST [facility] SPECIFIC GRAVITY (U) 1.010 1.002 - 1.030 11/19/2024 10:24 AM NETWORK ANALYST [facility] U PH 7.0 4.5 - 8.0 11/19/2024 10:24 AM [facility] LEUKOCYTES (U) NEGATIVE NEGATIVE 11/19/2024 10:24 AM [facility] NITRITES NEGATIVE NEGATIVE 11/19/2024 10:24 AM [facility] PROTEIN RANDOM (U) 1+(A) NEGATIVE 11/19/2024 10:24 AM [facility] GLUCOSE (U) NEGATIVE NEGATIVE 11/19/2024 10:24 AM [facility] KETONES MG/DL (U) NEGATIVE NEGATIVE 11/19/2024 10:24 AM [facility] UROBILINOGEN NORMAL NORMAL EU/DL 11/19/2024 10:24 AM [facility] BILIRUBIN (U) NEGATIVE NEGATIVE 11/19/2024 10:24 AM [facility] BLOOD (U) NEGATIVE NEGATIVE 11/19/2024 10:24 AM [facility] WBC/HPF 0-5 /HPF 11/19/2024 10:24 AM [facility] RBC/HPF 0-2 /HPF 11/19/2024 10:24 AM [facility] EPI/HPF 0-5 /HPF 11/19/2024 10:24 AM [facility] BACTERIA (U) 2+ /HPF 11/19/2024 10:24 AM [facility] URINE SPECIMEN FROM URETHRA / Unknown 11/19/2024 8:23 AM NETWORK ANALYST us Roney Arenas MD URINE ORDERABLES Final Re sult [facility] [address] [place] [address], [place] [phone] from Last 3 Months Insurance [employer] Advance Directives * Full Code (Latest Code Status on File) Date Activated Date Inactivated Comments 09/25/2019 11:24 AM 09/25/2019 2:15 PM Care Teams Coordinator Of Rehabilitation Services Relationship Specialty Start Date End Date Roney Arenas MD PCP - General INTERNAL MEDICINE 09/16/19
--- OUTSIDE RECORDS SUMMARY | 2025-01-18 12:32 | XMS_ITS ---
Author Organization [facility] Address [address] [place] [address] Phone Care Team Providers Care Supervisor Estimator And Drafter Name Role Phone ZAKIYA MYRICK MD Primary Care Provider [phone] ANTHONY YAO MD Unavailable [phone] Problems Includes: Active, inactive, and resolved Problems All Visits Onset Date Resolved Date Provider Condition S tatus Other specified abnormal uterine and vaginal bleeding 12/28/2019 LEANNE LUGO RN WHN P BC Active Last Documented On 0 11:41AM ; [facility] Hyperlipidemia 12/28/2019 LEANNE LUGO RN NP BC Active Last Documented On 0 11:39AM ; [facility] Note: 02/21/19 total chol = 215, triglyce rides = 398 Epilepsy and Recurrent Seizures 09/15/2018 POLO A SRINI NP-BC Active Last Documented On 8 2:09PM ; [facility] Reduced Mobility Wheelchair Bound 09/15/2018 [place] VINNIE A SRINI NP-BC Active Last Documented On 8 2:07PM ; [facility] Plan of Treatment Findings Encounter Date Ordered Clinical summary pro vided to patient RAG CUTTING MACHINE FEEDER EXAM with POLO [place] MILLIGAN NP-BC 09/21/2019 Last Documented On 9 2:43PM ; [facility] Ordered Clinical summary pro vided to patient RAG CUTTING MACHINE FEEDER EXAM with POLO MILLIGAN NP-BC 09/15/2018 Last Documented On 8 2:52PM ; [facility] Instructions to patient Instructions for patient : B reast Self Exam discussed Last Documented On 9 2:20PM ; [facility] Lose weight Last Documented On 9 2:21PM ; [facility] Instructions for patient : B reast Self Exam discussed Last Documented On 8 2:07PM ; [facility] Lose weight Last Documented On 8 2:17PM ; [facility] Safe sex counseling Last Documented On 8 2:17PM ; [facility] Instructions for patient : B reast Self Exam discussed Last Documented On 7 3:45PM ; [facility] Education and Decision Aids were provided during visit for: Patient counseling : Use of contraceptives discussed in detail including rare occurrence of heart attack, stroke, and leg clots. Patient understands that smoking increases the risk of serious side effects with any steroid-based contraceptive method Last Documented On 0 11:26AM ; [facility] control consent review ed and signed Last Documented On 0 11:28AM ; [facility] Patient Education: Daily julio cium and vitamin D Last Documented On 9 2:20PM ; [facility] Patient Education: weight be aring exercise Last Documented On 9 2:20PM ; [facility] Patient Education: Daily julio cium and vitamin D Last Documented On 8 2:07PM ; [facility] Patient Education: weight be aring exercise Last Documented On 8 2:07PM ; [facility] STD screening offered and de clined Last Documented On 7 3:45PM ; [facility] Assessments Includes: Assessments for all patient encounters Findings Encounter Date Encounter for contraceptive surveillance, unspecified CONSULTATION with LEANNE LUGO RN [facility] 12/28/2019 Last Documented On 0 1:02PM ; [facility] Hyperlipidemia CONSULTATION with LEANNE LUGO RN [facility] 12/28/2019 Last Documented On 0 1:02PM ; [facility] NORMAL FEMALE EXAM RAG CUTTING MACHINE FEEDER EXAM with OPLO Pearl [facility]- 09/21/2019 Last Documented On 9 2:43PM ; [facility] NORMAL FEMALE EXAM RAG CUTTING MACHINE FEEDER EXAM with POLO Pearl [facility]- 09/15/2018 Last Documented On 8 2:52PM ; [facility] Routine pelvic exam NEW RAG CUTTING MACHINE FEEDER EXAM with JAXON KOENIG MD 07/29/2017 Last Documented On 7 4:51PM ; [facility] Instructions Includes: Instructions for all patient encounters Instructions to patient Instructions for patient : B reast Self Exam discussed Last Documented On 9 2:20PM ; [facility] Lose weight Last Documented On 9 2:21PM ; [facility] Instructions for patient : B reast Self Exam discussed Last Documented On 8 2:07PM ; [facility] Lose weight Last Documented On 8 2:17PM ; [facility] Safe sex counseling Last Documented On 8 2:17PM ; [facility] Instructions for patient : B reast Self Exam discussed Last Documented On 7 3:45PM ; [facility] Education and Decision Aids were provided during visit for: Patient counseling : Use of contraceptives discussed in detail including rare occurrence of heart attack, stroke, and leg clots. Patient understands that smoking increases the risk of serious side effects with any steroid-based contraceptive method Last Documented On 0 11:26AM ; [facility] control consent review ed and signed Last Documented On 0 11:28AM ; [facility] Patient Education: Daily julio cium and vitamin D Last Documented On 9 2:20PM ; [facility] Patient Education: weight be aring exercise Last Documented On 9 2:20PM ; [facility] Patient Education: Daily julio cium and vitamin D Last Documented On 8 2:07PM ; [facility] Patient Education: weight be aring exercise Last Documented On 8 2:07PM ; [facility] STD screening offered and de clined Last Documented On 7 3:45PM ; [facility] Medical Equipment - Implanted Devices Includes: Current and historical Devices No Medical Equipment Recorded Medications Includes: Current and historical Medications Current Medications (continue as prescribed) Neosporin + Pain/Itch/Scar 1% External Ointment 2017 Provider: Diagnosis: Last Documented On 09/15/2018 2:32PM By Frances Gurrola MA ; [facility] Rulox [id number]/5ML Oral Suspension 09/15/2018 Pr ovider: Diagnosis: 30ML BY MOUTH EVERY 4 HOURS..MAX 5 DOSE IN 24 HO URS. Last Documented On 09/15/2018 2:30PM By Frances Gurrola MA ; [facility] Womens Multivitamin Oral Tablet 09/15/2018 Provider: Diagnosis: Last Documented On 09/15/2018 2:22PM By Frances Gurrola MA ; [facility] Vitamin D3 [id number] Oral Capsule, conventional Provider: Diagnosis: Last Documented On 09/15/2018 2:22PM By Frances Gurrola MA ; [facility] Bronson Cough Drops 6.1MG Mouth/Throat Lozenge 07/29/20 17 Provider: Diagnosis: Last Documented On 7 2:42PM By MIKE LAYTON ; [facility] DiphenhydrAMINE HCl 25MG Oral Capsule, conventional Provider: Diagnosis: Last Documented On 7 2:43PM By MIKE LAYTON ; [facility] SM Calcium Antacid 500MG Oral Tablet, chewable 017 Provider: Diagnosis: Last Documented On 7 2:39PM By MIKE LAYTON ; [facility] Cetirizine HCl 10MG Oral Tablet, chewable 07/29/2017 Provider: Diagnosis: Last Documented On 7 2:39PM By MIKE LAYTON ; [facility] Fluticasone Propionate 50MCG/ACT Nasal Suspension 07/29/2017 Provider: Diagnosis: Last Documented On 7 2:40PM By MIKE LAYTON ; [facility] Polyethylene Glycol 3350 Granules 07/29/2017 Provide r: Diagnosis: Last Documented On 7 2:40PM By MIKE LAYTON ; [facility] Vitamin B-12 1000MCG Oral Tablet 07/29/2017 Prov ider: Diagnosis: Last Documented On 7 2:40PM By MIKE LAYTON ; [facility] EQL Vitamin D3 1000UNIT Oral Capsule, conventional Provider: Diagnosis: Last Documented On 7 2:40PM By MIKE LAYTON ; [facility] Clindamycin Phosphate 1% External Gel (jelly) 07/29/20 17 Provider: Diagnosis: Last Documented On 7 2:41PM By MIKE LAYTON ; [facility] Adapalene 0.1% External Gel (jelly) 07/29/2017 Provi aren: Diagnosis: Last Documented On 7 2:41PM By MIKE LAYTON ; [facility] Benzonatate 200MG Oral Capsule, conventional Provider: Diagnosis: Last Documented On 7 2:42PM By MIKE LAYTON ; [facility] Bismatrol 262MG Oral Tablet, chewable 07/29/2017 Pro vider: Diagnosis: Last Documented On 7 2:42PM By MIKE LAYTON ; [facility] Refresh Tears 0.5% Ophthalmic Solution 07/29/2017 Pr ovider: Diagnosis: Last Documented On 7 2:44PM By MIKE LAYTON ; [facility] Topamax 100MG Oral Tablet 07/29/2017 Provider: Diagnosis: Last Documented On 7 2:44PM By MIKE LAYTON ; [facility] Topamax 200MG Oral Tablet 07/29/2017 Provider: Diagnosis: Last Documented On 7 2:44PM By MIKE LAYTON ; [facility] Montelukast Sodium 10MG Oral Tablet 07/29/2017 Provi aren: Diagnosis: Last Documented On 7 2:45PM By MIKE LAYTON ; [facility] Ibuprofen 400MG Oral Tablet 07/29/2017 Provider: Diagnosis: Last Documented On 7 2:45PM By MIKE LAYTON ; [facility] Mapap 325MG Oral Tablet 07/29/2017 Provider: Diagnosis: Last Documented On 7 2:45PM By MIKE LAYTON ; [facility] Meclizine HCl 12.5MG Oral Tablet 07/29/2017 Provider : Diagnosis: Last Documented On 7 2:46PM By MIKE LAYTON ; [facility] Mi-Acid 411-611-55IL/5ML Oral Suspension 07/29/2017 Provider: Diagnosis: Last Documented On 7 2:46PM By MIKE LAYTON ; [facility] Polyethylene Glycol 3350 Powder 07/29/2017 Provider: Diagnosis: Last Documented On 7 2:46PM By MIKE LAYTON ; [facility] Nystatin-Triamcinolone 316915-5.1UNIT/GM-% External Cr eam 07/29/2017 Provider: Diagnosis: Last Documented On 7 2:47PM By MIKE LAYTON ; [facility] Triple Antibiotic External Ointment 07/29/2017 P rovider: Diagnosis: Last Documented On 7 2:47PM By MIKE LAYTON ; [facility] Banzel 400MG Oral Tablet 07/29/2017 Provider: Diagnosis: Last Documented On 7 2:38PM By MIKE LAYTON ; [facility] Mucinex 600MG Oral Tablet, extended-release 12 hour Provider: Diagnosis: Last Documented On 7 2:43PM By MIKE LAYTON ; [facility] Keppra 100MG/ML Oral Solution 07/29/2017 Provider: Diagnosis: Last Documented On 7 2:43PM By MIKE LAYTON ; [facility] Divalproex Sodium 500MG Oral Tablet, enteric coated Provider: Diagnosis: Last Documented On 7 2:43PM By MIKE LAYTON ; [facility] ClonazePAM 2MG Oral Tablet 07/29/2017 Provider: Diagnosis: Last Documented On 7 2:42PM By MIKE LAYTON ; [facility] Past Medications on file Diabetic Siltussin JOHN-Na 10 0MG/5ML Oral Liquid (not specified) 09/15/2018 - 12/28/2019 Provider: Diagnosis: 10(200MG) EVERY 4 HOURS NEEDED Last Documented On 0 11:08AM By LEANNE CASANOVA ; [facility] Xulane 150-35MCG/24HR Transdermal Patch Weekly 0 07/29/2017 - 09/15/2018 Provider: Diagnosis: Last Documented On 09/15/2018 2:28PM By Frances Gurrola MA ; [facility] Diabetic Siltussin JOHN-Na 10 0MG/5ML Oral Liquid (not specified) 07/29/2017 - 12/28/2019 Provider: Diagnosis: Last Documented On 0 10:36AM By LEANNE CASANOVA ; [facility] Medications Administered Includes: Administered Medications in patient's chart No Administered Medications Recorded Results Includes: Results from 01/19/2024 through 01/18/2025 No Results Recorded For Specified Dates History of Present Illness History of Present Illness not supported for this document type No History of Present Illness Recorded Social History Description Last Updated Not sexually active 12/28/2019 Last Documented On 0 1:02PM ; [facility] Non-smoker 09/21/2019 Last Documented On 9 2:43PM ; [facility] Not using alcohol 09/21/2019 Last Documented On 9 2:43PM ; [facility] Not using drugs 09/21/2019 Last Documented On 9 2:43PM ; [facility] Social history unchanged 09/21/2019 Last Documented On 9 2:43PM ; [facility] Smoking status : Never smoker 09/21/2019 Last Documented On 9 2:43PM ; [facility] Procedures and Surgical History Surgical History Last Updated History of tubal ligation 2002 0 Last Documented On 0 1:02PM ; [facility] Surgical / procedural histor y ankle fracture repair 2006---fell during seizure ~tubal ligation 2002 ~ ~3 ankle fractures, 2 w/o(?) surgeries---during seizure falls ~cateract left eye 09/15/2018 Last Documented On 8 2:52PM ; [facility] Tonsillectomy 09/15/2018 Last Documented On 8 2:52PM ; [facility] Medical History Includes: Medical History in patient's chart Description Last Updated PRIMARY CARE PROVIDER : Dr. Myrick, neuro Dr. Hua CROOKS 12/28/2019 Last Documented On 0 1:02PM ; [facility] LMP: 12/24/2019 12/28/2019 Last Documented On 0 1:02PM ; [facility] Contraception: tubal 12/28/2019 Last Documented On 0 1:02PM ; [facility] History of Pap smear done 07/31/201712/06 Last Documented On 0 1:02PM ; [facility] Recent change in medical history having cateract surg 09-25-19 09/21/2019 Last Documented On 9 2:43PM ; [facility] Not sexually active 09/21/2019 Last Documented On 9 2:43PM ; [facility] Result: normal 09/21/2019 Last Documented On 9 2:43PM ; [facility] History of hyperlipidemia due to siezure meds 09/15/2018 Last Documented On 8 2:52PM ; [facility] Pt's mother, grandmother, an d great-grandmother had condition called hemorrhaging menses ~ ~Pt maternal aunt had endometrial cancer 07/29/2017 Last Documented On 7 4:51PM ; [facility] 0 07/29/2017 Last Documented On 7 4:51PM ; [facility] Family History Includes: Family History in patient's chart Description Last Updated Family history unchanged 09/21/2019 Last Documented On 9 2:43PM ; [facility] Maternal aunt's history of uterine cance r maternal aunt 09/15/2018 Last Documented On 8 2:52PM ; [facility] Maternal grandmother's history of diabet es mellitus maternal grandparents 09/15/2018 Last Documented On 8 2:52PM ; [facility] Maternal grandmother's history of hypert ension maternal grandparetns 09/15/2018 Last Documented On 8 2:52PM ; [facility] Paternal grandfather's history of pure h ypercholesterolemia pgf 09/15/2018 Last Documented On 8 2:52PM ; [facility] Paternal history of family history of he art disease mgf 09/15/2018 Last Documented On 8 2:52PM ; [facility] Review of Systems Review of Systems not supported for this document type No Review of Systems Recorded Mental Status No Mental Status Recorded Functional Status No Functional Status Recorded Physical Exam Physical Exam not supported for this document type No Physical Exam Recorded Insurance Includes: Active Insurance Policies Plan Name Member ID Group # Subscriber Relationship Effect ayah Dates 1 - [facility] [id number] GARY EASON Self Clinical Notes Includes: Signed Clinical Notes starting from 11/23/2022 No Clinical Notes Recorded
--- OUTSIDE RECORDS SUMMARY | 2025-01-18 12:32 | XMS_ITS | Clinical Summary ---
Author Organization [facility] Address [address] [place] [address] Phone Care Team Providers Care Case Technician Name Role Phone Roney Arenas MD Primary Care Provider [phone] Efrem Hoover MD Unavailable Allergies Active Allergy Reactions Criticality Noted Date Comments Lorazepam Hallucinations 06/04/2017 Medications adapalene (DIFFERIN) 0.1 % Gel Apply nightly. use small amount as directed Active clindamycin (CLEOCIN T) 1 % Lotion Apply every morning. use thin film on affected area Active Glycerin-Polysorba te 80 (REFRESH DRY EYE THERAPY OP) Place 1 Drop in affected eye(s) 2 times daily. Active LevETIRAcetam (KEPPRA) 1000 MG Tablet Take 1,000 mg by mouth 2 times daily. Takes 2 tabs twice daily. Active topiramate (TOPAMAX) 100 MG Tablet Take 100 mg by mouth 2 times daily. Active topiramate (TOPAMAX) 200 MG Tablet Take 200 mg by mouth 2 times daily. Active rufinamide (BANZEL) 400 MG Tablet Take 2,000 mg by mouth 2 times daily. Takes 5 tabs twice daily. Active divalproex (DEPAKOTE) 500 MG Tablet Delayed Response Take 500 mg by mouth 2 times daily. Active clonazePAM (KLONOPIN) 2 MG Tablet Take 1 Tab by mouth 2 times daily. 180 Tab 09/20/20 17 Active acetaminophen (MAPAP) 325 MG Tablet Take 1 Tab by mouth every 4 hours as needed for Mild or more severe pain. 120 Tab 1 01/15/20 20 Active Cholecalciferol (VITAMIN D3) 1000 UNIT Tablet Take 1 Tab by mouth daily. 90 Tab 3 01/15/20 20 Active Norelgestromin-Eth Estradiol (XULANE) 150-35 MCG/24HR PATCH WEEKLYIndications: 1 patch for 7 days times 3 weeks 1 week without 1 Patch by Transdermal route every 7 days. Indications: 1 patch for 7 days times 3 weeks 1 week without 4 Patch 5 03/04/20 20 Active acetaminophen (TYLENOL) 650 MG Tablet Controlled Release Take 1 Tab by mouth every 6 hours as needed for Mild or more severe pain. 100 Tab 05/13/20 20 Active diphenhydrAMINE (BENADRYL ALLERGY) 25 MG Tablet Take 1 Tab by mouth every 6 hours as needed for Itching. 100 Tab 05/13/20 20 Active ibuprofen (MOTRIN) 400 MG Tablet Take 1 Tab by mouth every 6 hours as needed for Moderate or more severe pain. 360 Tab 05/13/20 20 Active Saline (SIMPLY SALINE) 0.9 % Aerosol Solution 2 Sprays by Nasal route every 4 hours as needed (Congestion and drainage). 1 Can 1 05/16/20 20 Active polyethylene glycol (GLYCOLAX, MIRALAX) 17 g Pack Take 1 Packet by mouth Every other day. 45 Packet 3 05/16/20 20 Active cyanocobalamin 1000 MCG Tablet Take 1 Tab by mouth daily. 90 Tab 3 05/16/20 20 Active fluticasone (FLONASE) 50 MCG/ACT Suspension 2 Sprays by Nasal route daily. Use in each nostril as directed. 1 Bottle 5 05/16/20 20 Active Multiple Vitamin (DAILY-LUCIUS) Tablet Take 1 Tab by mouth daily. 90 Tab 3 05/16/20 20 Active calcium citrate-vitamin D (CITRACAL PETITES/VITAMIN D) 200-250 MG-UNIT Tablet Take 2 Tabs by mouth daily. 180 Tab 3 05/16/20 20 Active guaiFENesin (MUCINEX) 600 MG TABLET SR 12 HR Take 1 Tab by mouth 2 times daily as needed for Congestion or Cough. Takes 2 tabs twice daily 62 Tab 11 06/03/20 20 Active montelukast (SINGULAIR) 10 MG Tablet TAKE 1 TABLET BY MOUTH DAILY 90 Tab 3 06/27/20 20 Active cetirizine (ZyrTEC) 10 MG Tablet Take 1 Tab by mouth daily. 90 Tab 3 07/28/20 20 Active Sunscreens (Chapstick Moisturizer) STICK Apply as needed to lips 1 Stick 11 09/09/20 20 Active Misc. Devices Misc May have podiatry services, [facility] 1 Each 02/22/20 22 Active atorvastatin (Lipitor) 10 MG TabletIndications: Mixed hyperlipidemia Take 1 Tablet by mouth daily. 90 Tablet 03/19/20 22 Active benzonatate (Tessalon Perles) 100 MG Capsule Take 1 Capsule by mouth 3 times daily as needed for Cough. 30 Capsule 10/30/20 22 Active Calcium Carbonate-Simethic one 750-80 MG Chewable Tablet Take by mouth. Active sodium fluoride 1.1 (0.5 F) MG/ML Solution Take 1.1 mg by mouth daily. Active Banophen 25 MG Capsule 01/17/20 23 Active Ascorbic Acid (Vitamin C Drops) 60 MG Lozenge Use up to 6 times daily as needed 180 Lozenge 5 04/17/20 23 Active Carboxymethylcellu lose Sodium (REFRESH PLUS OP) Place in affected eye(s) 2 times daily. Active omeprazole (PriLOSEC) 40 MG CAPSULE DELAYED RELEASEIndications :Gastroesophageal reflux disease without esophagitis Take 1 Capsule by mouth daily. 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 Overview (07/18/2018): Overview: Description: mild mental retardation Seizure disorder ADD (attention deficit disorder) Overview (06/04/2017): with hyperactivity Depression, reactive Mixed hyperlipidemia Mood disorder Allergic rhinitis Overview (06/07/2021): Dust mites Resolved Problems Problem Noted Date Diagnosed Date Resolved Date Fall 11/26/2018 02/27/2019 Ingrown left greater toenail 01/03/2018 02/21/2018 Pain of left great toe 01/03/201802/21 Encounters Date Type Department Care Team Description [facility] [place] [address] [place] [phone] Roney Arenas MD Medication Refill [facility] [address] [place] [phone] Roney Arenas MD Results 10/21/20[facility] [address] [place] [address] Roney Arenas MD Immunization/Injection 10/20/2024 Telephone [facility] [place] [address] [place] [phone] Roney Arenas MD Form Completion from Last 3 Months Immunizations Immunization Administration Dates Next Due Covid-19, Mrna, Lnp-s, PF, 1 00 mcg/0.5 mL Dose (Moderna) 01/06/2021,12/09/2020 Covid-19, Mrna, Lnp-s, Pf, 1 00 Mcg Or 50 Mcg Dose (MODERNA) 09/22/2022 DTAP VACCINE 07/29/2009, 9,11/29/1985,10/05,1984,1984 H1N1 Flu, Unspecified Formulation 09/04/2009 HIB Vaccine (PRP-T) 04/12/1986 Hepatitis A Vaccine 12/06/1997,06/04/1997,1996 Hepatitis B Vaccine 03/30/1997,10/30/1996,1995 Human Papillomavirus Vaccine (HPV), quadrivalent 08/04/2007,04/11/2007,02/07/2007 Influenza Vaccine greater than 3 yrs ,07/23/2017,07/29/2009,08/04,09/21/2003,09/05/1999,08/15/19 98,08/26/1997 07/05/2019 Influenza Vaccine, MDCK,quad rivalent, pres free 07/28/2022 Influenza Vaccine, Quadrivalent, PF 07/05,09/10/2016,08/05/2015,07/06 MMR Vaccine 04/28/1992,07/29/1985 Meningococcal Vaccine 05/24/2005 OPV 04/30/1989, 6,1984,06/04 Pneumococcal Vaccine Adult - 23 Valent 01/05/2005 Pneumococcal Vaccine Peds - 7 Valent 08/27/1996 Pneumococcal conjugate PCV20 , polysaccharide [id number] conjugate, adjuvant, PF 03/29/2023 TB Skin Test 03/16/2022,,04/11/2020,03/05,06/09/2016,11/01/2005,04/10/19 96 TD VACCINE 01/30/1999 TDAP Vaccine 11/19/2018 Varicella Vaccine Live 05/27/2015 Family History Medical History Relation Name Comments No Known Problems Brother Alcohol Abuse Father Bipolar Disorder Father Hypertension Father Relation Name Status Comments Brother Alive Father Alive Mother Alive [employer] Social History Tobacco Use Types Packs/Day Years Used Date Smoking Tobacco: Never Smokeless Tobacco: Never Tobacco Cessation:Counseling Given: Not Answered Alcohol Use Standard Drinks/Week Comments No 0 (1 standard drink = 0.6 oz pur e alcohol) PHQ-2 Answer Date Recorded Total Score - Questions 1-9 0 03/04 Comments No Sex and Gender Information Value Date Recorded Sex Assigned at Not on file Legal Sex Female 11:59 PM CDT Gender Identity Not on file Sexual Orientation Not on file Last Filed Vital Signs Vital Sign Reading Time Taken Comments Blood Pressure 112/72 03/27/2024 10:53 AM CDT Pulse 77 03/27/2024 10:53 AM CDT Temperature 36.3 C (97.4 F) 03/27/2024 10:53 AM CDT Respiratory Rate 18 03/27/2024 10:53 AM CDT Oxygen Saturation 97% 03/27/2024 10:53 AM CDT Inhaled Oxygen Concentration - - Weight 79.8 kg (176 lb) 03/27/2024 10:53 AM CDT Height 160 cm (5' 3 ) 03/27/2024 10:53 AM CDT Body Mass Index 31.18 03/27/2024 10:53 AM CDT Plan of Treatment Upcoming Encounters Date Type Department Care Team (Late st Contact Info) Description 03/26/2025 11:00 AM CDT Office Visit [facility] - [place] [address] [place] [phone] Roney Arenas MD [address] [place], [place] [phone] Health Maintenance Due Date Last Done Comments Pap Smear 11/11/2023 11/11/2020, 07/06, 07/29/2017, Additional history exists Influenza Immunization (#1) 07/05/202407/06, 07/21/2020, 07/06/2019, Additional history exists SARS-COV-2 Immunization ( season) 2024 08/18/2023, 09/22/2022, 09/22/2022, Additional history exists Mammogram 06/26/2025 06/26/2024 Cervical Cancer Screening (CCS) 11/11/2025 HPV/Cotest 11/11/2025 11/11/2020 DTaP/Tdap/Td Immunization (8 - Td or Tdap) 11/19/2028 11/19/2018, 07/29/2009, 01/30/1999, Additional history exists Td Immunization Every 10 Years (Adults With 1 Tdap) 11/19/2028 11/19/2018, 01/30/1999 Respiratory Syncytial Virus (RSV) Immunization (Adult) (1 - 1-dose 75+ series) 2059 Hepatitis B Immunization Completed 997, 10/30/1996, 09/25/1996 Meningococcal Immunization (ACWY) Aged Out 05/24/2005 No longer eligible based on patient's age to complete this topic Pneumococcal Immunization Combined Aged Out 03/29/2023, 01/05/2005, 08/27/1996 No longer eligible based on patient's age to complete this topic Hepatitis C Virus (HCV) Screening Completed 03/27/2024 Discussion re Starting/Frequency of Mammograms Completed 07/21/2024, 06/26/2024 Rotavirus Immunization Aged Out No lo nger eligible based on patient's age to complete this topic Procedures Procedure Name Priority Date/Time Associated Diagnosis Comments URINALYSIS (UA) RANDOM 11/19/2024 12:00 AM SHOP COORDINATOR URINALYSIS (UA) RANDOM 11/19/2024 12:00 AM SHOP COORDINATOR URINALYSIS (UA) RANDOM 11/19/2024 12:00 AM SHOP COORDINATOR MAMMOGRAM UNILATERAL GENERIC 07/21/2024 12:00 AM CDT MAMMOGRAM BILATERAL GENERIC 06/26/2024 12:00 AM CDT HEPATITIS C ANTIBODY Routine 03/27/2024 11:23 AM CDT Encounter for hepatitis C screening test for low risk patient HUMAN PAPILLOMA VIRUS (HPV) 11/11/2020 12:00 AM SHOP COORDINATOR PATHOLOGY CYTOLOGY KAIAKO KOHANGA REO 11/11/2020 12:00 AM SHOP COORDINATOR from Last 3 Months or Most Recently Relevant to Health Maintenance Results * URINALYSIS (UA) RANDOM (11/19/2024 12:00 AM SHOP COORDINATOR) Only the most recent of3 resultswithin the time period is included. 11/19/2024 us Roney Arenas MD URINE ORDERABLES Final Re sult Performing Organization Address [facility]/ZIP Co de Phone Number SCAN * MAMMOGRAM UNILATERAL MISCELLANEOUS (07/21/2024 12:00 AM CDT) 07/21/2024 us Provider Scan IMG MAMMO ORDERABLES Final Resul t SCAN * MAMMOGRAM BILATERAL MISCELLANEOUS (06/26/2024 12:00 AM CDT) 06/26/2024 us Provider Scan IMG MAMMO ORDERABLES Final Resul t Performing Organization Address City/[facility]/ZIP Co de Phone Number SCAN * HEPATITIS C ANTIBODY (03/27/2024 11:23 AM CDT) hepatitis C antibody 0.09 <1 S/CO 03/27/2024 10:53 PM [facility]T [facility]: Signal/Cutoff ratio < 0.79 is Nondetected Signal/Cutoff ratio 0.80-0.99 is Grayzone Signal/Cutoff ratio > 0.99 is Detected Supplemental assays are recommended if signal/cutoff ratio is >/=1.00. Signal/cutoff ratio result >/= 5.00 is 97% predictive of positivity for recombinant immunoblot assay (RIBA) and will be reported to the [place] Department of Public Health as required. Blood Venipuncture / Unknown 03/27/2024 11:23 AM CDT 03/27/2024 11:23 AM CDT us Roney Arenas MD CHEMISTRY ORDERABLES Josselin l Result Performing Organization Address [facility] de Phone Number [facility] [address] [place] [address], * PATHOLOGY CYTOLOGY KAIAKO KOHANGA REO (11/11/2020 12:00 AM SHOP COORDINATOR) 11/11/2020 us Not On File Provider PATHOLOGY/CYTOLOGY ORDERABL ES Final Result Performing Organization Address [facility] de Phone Number [facility] * HUMAN PAPILLOMA VIRUS (HPV) (11/11/2020 12:00 AM SHOP COORDINATOR) 11/11/2020 us Not On File Provider LAB SEND OUTS Final Resul t Performing Organization Address City/[facility]/ZIP Co de Phone Number [facility] from Last 3 Months or Most Recently Relevant to Health Maintenance Insurance [place]ICA[place] Advance Directives Documents on File Type Date Recorded 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
--- OUTSIDE RECORDS SUMMARY | 2025-01-18 12:32 | XMS_ITS | Encounter Summary ---
Author Organization [facility] Address [address] [place] [address] Phone Care Team Providers Care Assistant Plant Controller Name Role Phone Lico Grimm MD Primary Care Provider [phone] Roney Arenas MD Primary Care Provider + Roney Arenas MD Primary Care Provider + Cordelia Iqbal MD Primary Care Provider Roney Arenas MD Primary Care Provider + Encounter Details Date Type Department Care Team (Late st Contact Info) Description 11/21/2012 Orders Only [facility] Flor Sloan MD [address] [facility]Y, [address] [address] Social History Tobacco Use Types Packs/Day Years Used Date Smoking Tobacco: Never Assessed Comments Unknown Sex and Gender Information Value Date Recorded Sex Assigned at Not on file 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 Gender Identity Not on file Sexual Orientation Not on file documented as of this encounter Plan of Treatment Not on file documented as of this encounter Procedures Procedure Name Priority Date/Time Associated Diagnosis Comments PROCEDURE REPORT 11/21/2012 documented in this encounter Results * PROCEDURE REPORT (11/21/2012) us Flor Sloan MD NURSING COMMUNICATION Final Res ult documented in this encounter Visit Diagnoses Not on filedocumented in this encounter Care Teams Assistant Plant Controller Relationship Specialty [place] [address] [address] PCP - General 04/19/17 06/30/17 [place] [address] [address] PCP - General 07/01/17 04/03/18 [place] [address] [address] PCP - General 04/04/18 04/04/18 Cordelia Iqbal MD [facility] [address] [address] PCP - General 04/05/18 07/31/18 [place] [address] [address] PCP - General Internal Medicine 08/01/18 documented as of this encounter
--- OUTSIDE RECORDS SUMMARY | 2025-01-18 12:32 | XMS_ITS | Clinical Summary ---
Author Organization [facility] Address [address] [place] [address] Phone Care Team Providers Care Merchandise Director Name Role Phone ELEN WHALEN, ZAKIYA eLe Primary Care Provider [phone] NAJMA WHALEN, ANTHONY Martinez Unavailable [phone] Reason for Visit and Chief Complaint gynecologic annual exam - The Chief Complaint is: Annual Problems Includes: Problems addressed during this encounter and other active Problems All Visits Onset Date Resolved Date Provider Condition S tatus Other specified abnormal uterine and vaginal bleeding 12/28/2019 LEANNE LUGO RN N P BC Active Last Documented On 0 11:41AM ; [facility] Hyperlipidemia 12/28/2019 LEANNE LUGO RN NP BC Active Last Documented On 0 11:39AM ; [facility] Note: 02/21/19 total chol = 215, triglyce rides = 398 Epilepsy and Recurrent Seizures 09/15/2018 POLO MILLIGAN SANDY- Active Last Documented On 8 2:09PM ; [facility] Reduced Mobility Wheelchair Bound 09/15/2018 MARCO MILLIGAN SANDY- Active Last Documented On 8 2:07PM ; [facility] Plan of Treatment - Clinical summary provided to patient - Last Documented On 09/21/2019 2:43PM ; [facility] Per new ASCCP guidelines, pap was deferred today. This was d/w pt. and pt. is agreeable to this plan. - Last Documented On 09/21/2019 2:43PM ; [facility] Instructions to patient Instructions for patient : B reast Self Exam discussed Last Documented On 9 2:20PM ; [facility] Lose weight Last Documented On 9 2:21PM ; [facility] Education and Decision Aids were provided during visit for: Patient Education: Daily julio cium and vitamin D Last Documented On 9 2:20PM ; [facility] Patient Education: weight be aring exercise Last Documented On 9 2:20PM ; [facility] Assessments Includes: Assessments from this encounter Findings - NORMAL FEMALE EXAM - Last Documented On 09/21/2019 2:43PM ; [facility] Instructions Includes: Instructions from this encounter Instructions to patient Instructions for patient : B reast Self Exam discussed Last Documented On 9 2:20PM ; [facility] Lose weight Last Documented On 9 2:21PM ; [facility] Education and Decision Aids were provided during visit for: Patient Education: Daily julio cium and vitamin D Last Documented On 9 2:20PM ; [facility] Patient Education: weight be aring exercise Last Documented On 9 2:20PM ; [facility] Medical Equipment - Implanted Devices Includes: Current Devices No Medical Equipment Recorded Medications Includes: Medications discussed during this encounter and other current Medications Current Medications (continue as prescribed) Neosporin + Pain/Itch/Scar 1% External Ointment 2017 Provider: Diagnosis: Last Documented On 09/15/2018 2:32PM By Frances Gurrola MA ; [facility] Rulox [id number]/5ML Oral Suspension 09/15/2018 Pr ovider: Diagnosis: 30ML BY MOUTH EVERY 4 HOURS..MAX 5 DOSE IN 24 HO URS. Last Documented On 09/15/2018 2:30PM By Frances Gurrola MA ; [facility] Womens Multivitamin Oral Tablet 09/15/2018 Provider: Diagnosis: Last Documented On 09/15/2018 2:22PM By Frances Gurrola MA ; [facility] Vitamin D3 [id number] Oral Capsule, conventional Provider: Diagnosis: Last Documented On 09/15/2018 2:22PM By Frances Gurrola MA ; [facility] Bronson Cough Drops 6.1MG Mouth/Throat Lozenge 07/29/20 17 Provider: Diagnosis: Last Documented On 7 2:42PM By MIKE LAYTON ; [facility] DiphenhydrAMINE HCl 25MG Oral Capsule, conventional Provider: Diagnosis: Last Documented On 7 2:43PM By MIKE LAYTON ; [facility] SM Calcium Antacid 500MG Oral Tablet, chewable 017 Provider: Diagnosis: Last Documented On 7 2:39PM By MIKE LAYTON ; [facility] Cetirizine HCl 10MG Oral Tablet, chewable 07/29/2017 Provider: Diagnosis: Last Documented On 7 2:39PM By MIKE LAYTON ; [facility] Fluticasone Propionate 50MCG/ACT Nasal Suspension 07/29/2017 Provider: Diagnosis: Last Documented On 7 2:40PM By MIKE LAYTON ; [facility] Polyethylene Glycol 3350 Granules 07/29/2017 Provide r: Diagnosis: Last Documented On 7 2:40PM By MIKE LAYTON ; [facility] Vitamin B-12 1000MCG Oral Tablet 07/29/2017 Prov ider: Diagnosis: Last Documented On 7 2:40PM By MIKE LAYTON ; [facility]QL Vitamin D3 1000UNIT Oral Capsule, conventional Provider: Diagnosis: Last Documented On 7 2:40PM By MIKE LAYTON ; [facility] Clindamycin Phosphate 1% External Gel (jelly) 07/29/20 17 Provider: Diagnosis: Last Documented On 7 2:41PM By MIKE LAYTON ; [facility] Adapalene 0.1% External Gel (jelly) 07/29/2017 Provi aren: Diagnosis: Last Documented On 7 2:41PM By MIKE LAYTON ; [facility] Benzonatate 200MG Oral Capsule, conventional 7 Provider: Diagnosis: Last Documented On 7 2:42PM By MIKE LAYTON ; [facility] Bismatrol 262MG Oral Tablet, chewable 07/29/2017 Pro vider: Diagnosis: Last Documented On 7 2:42PM By MIKE LAYTON ; [facility] Refresh Tears 0.5% Ophthalmic Solution 07/29/2017 Pr ovider: Diagnosis: Last Documented On 7 2:44PM By MIKE LAYTON ; [facility] Topamax 100MG Oral Tablet 07/29/2017 Provider: Diagnosis: Last Documented On 7 2:44PM By MIKE LAYTON ; [facility] Topamax 200MG Oral Tablet 07/29/2017 Provider: Diagnosis: Last Documented On 7 2:44PM By MIKE LAYTON ; [facility] Montelukast Sodium 10MG Oral Tablet 07/29/2017 Provi aren: Diagnosis: Last Documented On 7 2:45PM By MIKE LAYTON ; [facility] Ibuprofen 400MG Oral Tablet 07/29/2017 Provider: Diagnosis: Last Documented On 7 2:45PM By MIKE LAYTON ; [facility] Mapap 325MG Oral Tablet 07/29/2017 Provider: Diagnosis: Last Documented On 7 2:45PM By MIKE LAYTON ; [facility] Meclizine HCl 12.5MG Oral Tablet 07/29/2017 Provider : Diagnosis: Last Documented On 7 2:46PM By MIKE LAYTON ; [facility] Mi-Acid 905-201-35LC/5ML Oral Suspension 07/29/2017 Provider: Diagnosis: Last Documented On 7 2:46PM By MIKE LAYTON ; [facility] Polyethylene Glycol 3350 Powder 07/29/2017 Provider: Diagnosis: Last Documented On 7 2:46PM By MIKE LAYTON ; [facility] Nystatin-Triamcinolone 751252-9.1UNIT/GM-% External Cr eam 07/29/2017 Provider: Diagnosis: Last Documented On 7 2:47PM By MIKE LAYTON ; [facility] Triple Antibiotic External Ointment 07/29/2017 Vincent harrisder: Diagnosis: Last Documented On 7 2:47PM By MIKE LAYTON ; [facility] Banzel 400MG Oral Tablet 07/29/2017 Provider: Diagnosis: Last Documented On 7 2:38PM By MIKE LAYTON ; [facility] Mucinex 600MG Oral Tablet, extended-release 12 hour Provider: Diagnosis: Last Documented On 7 2:43PM By MIKE LAYTON ; [facility] Keppra 100MG/ML Oral Solution 07/29/2017 Provider: Diagnosis: Last Documented On 7 2:43PM By MIKE LAYTON ; [facility] Divalproex Sodium 500MG Oral Tablet, enteric coated Provider: Diagnosis: Last Documented On 7 2:43PM By MIKE LAYTON ; [facility] ClonazePAM 2MG Oral Tablet 07/29/2017 Provider: Diagnosis: Last Documented On 7 2:42PM By MIKE LAYTON ; [facility] Medications Administered Includes: Administered Medications from this encounter No Administered Medications Recorded Vital Signs Includes: Vital Signs from this encounter Vital Name 09/21/2019 02:19P Blood Pressure Sitting L 124/74 BP Cuff Size Large Height (in) 64 Weight (lb) 205 Body Mass Index (kg/m2) 35.2 Body Surface Area (m2) 2.0 Last Documented: On 09/21/2019 2:20PM ; [facility] Results Includes: Results discussed during this encounter THINPREP TIS AND HPV mRNA E6/E7 [employer] Ordered by JAXON GARCIA MD on 7 Collected: 07/29/2017 Reported: 08/01/20 17 12:52 Last Documented On 7 1:54PM ; [facility] Reviewed on 08/02/2017; All test results are final unless otherwise noted. HPV mRNA E6/E7 Not Detected (Not Detected) N (Normal) Last Documented On 7 1:54PM ; [facility] Note: This test was performed using the APTIMA HPV Assay ([employer]This assay detects E6/E7 viral messenger RNA (mRNA) from 14high-risk HPV types (16,18,31,33,35,39,45,51,52,56,58,59,66,68). SOURCE: Cervix, Endocervix N (Normal) Last Documented On 1:54PM ; [facility] CLINICAL INFORMATION: Routine exam N (Normal) Last Documented On 1:54PM ; [facility] LMP: 07/10/2017 N (Normal) Last Documented On 1:54PM ; [facility] PREV. PAP: 02/22/2014 N (Normal) Last Documented On 1:54PM ; [facility] PREV. BX: NONE GIVEN N (Normal) Last Documented On 1:54PM ; [facility] STATEMENT OF ADEQUACY: Satisfactory for evaluation. Endocervical/transformation zone component present. N (Normal) Last Documented On 1:54PM ; [facility] INTERPRETATION/RESULT: Negative for intraepithelial lesion or malignancy. N (Normal) Last Documented On 1:54PM ; [facility] COMMENT: This Pap test has been evaluated with computer assisted technology. N (Normal) Last Documented On 1:54PM ; [facility] MOLDER SETTER: LAUREN CONNOR(ASCP) CT screening location: [place] [address] [place] [address] N (Normal) Last Documented On 1:54PM ; [facility] History of Present Illness Includes: History of Present Illness from this encounter HPI GARY EASON is a 34 year old female. - Medication list reviewed - PRIMARY CARE PROVIDER : Dr Arenas - Medication reconciliation performed Social History Description Last Updated Sexually active 12/28/2019 Last Documented On 9 2:10PM ; [facility] Non-smoker 09/21/2019 Last Documented On 9 2:43PM ; [facility] Not using alcohol 09/21/2019 Last Documented On 9 2:43PM ; [facility] Not using drugs 09/21/2019 Last Documented On 9 2:43PM ; [facility] Social history unchanged 09/21/2019 Last Documented On 9 2:43PM ; [facility] Smoking status : Never smoker 09/21/2019 Last Documented On 9 2:43PM ; [facility] Procedures and Surgical History Includes: Procedures from this encounter Procedures Code Diagnosis Performing Provider Service L ocation Service Date low fat diet Last Documented On 9 2:21PM ; [facility] Surgical History Last Updated History of tubal ligation 12/28/2019 Last Documented On 9 2:10PM ; [facility] Surgical / procedural histor y ankle fracture repair 2006---fell during seizure ~tubal ligation 2002 ~ ~3 ankle fractures, 2 w/o(?) surgeries---during seizure falls ~cateract left eye 09/15/2018 Last Documented On 9 2:10PM ; [facility] Tonsillectomy 09/15/2018 Last Documented On 9 2:10PM ; [facility] Medical History Includes: Medical History addressed during this encounter Description Last Updated Recent change in medical history having cateract surg 09-25-19 09/21/2019 Last Documented On 9 2:43PM ; [facility] LMP: 09/09/2019 09/21/2019 Last Documented On 9 2:43PM ; [facility] Not sexually active 09/21/2019 Last Documented On 9 2:43PM ; [facility] History of Pap smear done 07/29/201709/04 Last Documented On 9 2:43PM ; [facility] Result: normal 09/21/2019 Last Documented On 9 2:43PM ; [facility] History of hyperlipidemia due to siezure meds 09/15/2018 Last Documented On 9 2:10PM ; [facility] Pt's mother, grandmother, an d great-grandmother had condition called hemorrhaging menses ~ ~Pt maternal aunt had endometrial cancer 07/29/2017 Last Documented On 9 2:10PM ; [facility] 0 07/29/2017 Last Documented On 9 2:10PM ; [facility] Family History Includes: Family History addressed during this encounter Description Last Updated Family history unchanged 09/21/2019 Last Documented On 9 2:43PM ; [facility] Maternal aunt's history of uterine cance r maternal aunt 09/15/2018 Last Documented On 9 2:10PM ; [facility] Maternal grandmother's history of diabet es mellitus maternal grandparents 09/15/2018 Last Documented On 9 2:10PM ; [facility] Maternal grandmother's history of hypert ension maternal grandparetns 09/15/2018 Last Documented On 9 2:10PM ; [facility] Paternal grandfather's history of pure h ypercholesterolemia pgf 09/15/2018 Last Documented On 9 2:10PM ; [facility] Paternal history of family history of he art disease mgf 09/15/2018 Last Documented On 9 2:10PM ; [facility] Review of Systems Includes: Review of Systems from this encounter Gastrointestinal: No pelvic pain. Genitourinary: No menorrhagia. No dysmenorrhea and no bleeding between periods. No vaginal discharge. 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
--- OUTSIDE RECORDS SUMMARY | 2025-01-18 12:33 | XMS_ITS | Clinical Summary ---
Author Organization [facility] Address [address] [place] [address] Phone Care Team Providers Care Physical Therapy Nurse Name Role Phone ELEN WHALEN, ZAKIYA Lee Primary Care Provider [phone] NAJMA WHALEN, ANTHONY Martinez Unavailable [phone] Reason for Visit and Chief Complaint gynecologic annual exam - The Chief Complaint is: Annual-pt is on the patch because she is on cyclecontrol. They said that she cannot take ocp because she cannot keep it down. She has heavy cycles when not on the patch. Now she is spotting a week before her menses also. They said the patch also was helping with the epilepsy because it evened her hormones out Problems Includes: Problems addressed during this encounter and other active Problems Current Visit Onset Date Resolved Date Provider Conditio n Status Epilepsy and Recurrent Seizures 09/15/2018 POLO MILLIGAN NP-BC Active Last Documented On 8 2:09PM ; [facility] Reduced Mobility Wheelchair Bound 09/15/2018 [place] VINNIE MILLIGAN SANDY-BC Active Last Documented On 8 2:07PM ; [facility] Past Visits Onset Date Resolved Date Provider Condition Status Other specified abnormal uterine and vaginal bleeding 12/28/2019 LEANNE LUGO RN WHN P BC Active Last Documented On 0 11:41AM ; [facility] Hyperlipidemia 12/28/2019 LEANNE LUGO RN WHNP BC Active Last Documented On 0 11:39AM ; [facility] Note: 02/21/19 total chol = 215, triglyce rides = 398 Plan of Treatment - Clinical summary provided to patient - Last Documented On 09/15/2018 2:52PM ; [facility] Per new ASCCP guidelines, pap was deferred today. This was d/w pt. and pt. is agreeable to this plan. - Last Documented On 09/15/2018 2:52PM ; [facility] Instructions to patient Instructions for patient : B reast Self Exam discussed Last Documented On 8 2:07PM ; [facility] Lose weight Last Documented On 8 2:17PM ; [facility] Safe sex counseling Last Documented On 8 2:17PM ; [facility] Education and Decision Aids were provided during visit for: Patient Education: Daily julio cium and vitamin D Last Documented On 8 2:07PM ; [facility] Patient Education: weight be aring exercise Last Documented On 8 2:07PM ; [facility] Assessments Includes: Assessments from this encounter Findings - NORMAL FEMALE EXAM - Last Documented On 09/15/2018 2:52PM ; [facility] Instructions Includes: Instructions from this encounter Instructions to patient Instructions for patient : B reast Self Exam discussed Last Documented On 8 2:07PM ; [facility] Lose weight Last Documented On 8 2:17PM ; [facility] Safe sex counseling Last Documented On 8 2:17PM ; [facility] Education and Decision Aids were provided during visit for: Patient Education: Daily julio cium and vitamin D Last Documented On 8 2:07PM ; [facility] Patient Education: weight be aring exercise Last Documented On 8 2:07PM ; [facility] Medical Equipment - Implanted Devices Includes: Current Devices No Medical Equipment Recorded Medications Includes: Medications discussed during this encounter and other current Medications Discontinued / Stopped on this date on 07/29/2017 Xulane 150-35MCG/24HR Transdermal Patch Weekly Provider: Diagnosis: Last Documented On 09/15/2018 2:28PM By Frances Gurrola MA ; [facility] Current Medications (continue as prescribed) Neosporin + Pain/Itch/Scar 1% External Ointment 2017 Provider: Diagnosis: Last Documented On 09/15/2018 2:32PM By Frances Gurrola MA ; [facility] Rulox 140-591-26FP/5ML Oral Suspension 09/15/2018 Pr ovider: Diagnosis: 30ML BY MOUTH EVERY 4 HOURS..MAX 5 DOSE IN 24 HO URS. Last Documented On 09/15/2018 2:30PM By Frances Gurrola MA ; [facility] Womens Multivitamin Oral Tablet 09/15/2018 Provider: Diagnosis: Last Documented On 09/15/2018 2:22PM By Frances Gurrola MA ; [facility] Vitamin D3 74147HQOO Oral Capsule, conventional Provider: Diagnosis: Last Documented On 09/15/2018 2:22PM By Frances Gurrola MA ; [facility] Bronson Cough Drops 6.1MG Mouth/Throat Lozenge 07/29/20 17 Provider: Diagnosis: Last Documented On 7 2:42PM By MIKE LAYTON ; [facility] DiphenhydrAMINE HCl 25MG Oral Capsule, conventional Provider: Diagnosis: Last Documented On 7 2:43PM By MIKE LAYTON ; [facility] SM Calcium Antacid 500MG Oral Tablet, chewable 017 Provider: Diagnosis: Last Documented On 7 2:39PM By MIKE LAYTON ; [facility] Cetirizine HCl 10MG Oral Tablet, chewable 07/29/2017 Provider: Diagnosis: Last Documented On 7 2:39PM By MIKE LAYTON ; [facility] Fluticasone Propionate 50MCG/ACT Nasal Suspension 07/29/2017 Provider: Diagnosis: Last Documented On 7 2:40PM By MIKE LAYTON ; [facility] Polyethylene Glycol 3350 Granules 07/29/2017 Provide r: Diagnosis: Last Documented On 7 2:40PM By MIKE LAYTON ; [facility] Vitamin B-12 1000MCG Oral Tablet 07/29/2017 Prov ider: Diagnosis: Last Documented On 7 2:40PM By MIKE LAYTON ; [facility] EQL Vitamin D3 1000UNIT Oral Capsule, conventional Provider: Diagnosis: Last Documented On 7 2:40PM By MIKE LAYTON ; [facility] Clindamycin Phosphate 1% External Gel (jelly) 07/29/20 17 Provider: Diagnosis: Last Documented On 7 2:41PM By MIKE LAYTON ; [facility] Adapalene 0.1% External Gel (jelly) 07/29/2017 Provi aren: Diagnosis: Last Documented On 7 2:41PM By MIKE LAYTON ; [facility] Benzonatate 200MG Oral Capsule, conventional 7 Provider: Diagnosis: Last Documented On 7 2:42PM By MIKE LAYTON ; [facility] Bismatrol 262MG Oral Tablet, chewable 07/29/2017 Pro vider: Diagnosis: Last Documented On 7 2:42PM By MIKE LAYTON ; [facility] Refresh Tears 0.5% Ophthalmic Solution 07/29/2017 Pr ovider: Diagnosis: Last Documented On 7 2:44PM By MIKE LAYTON ; [facility] Topamax 100MG Oral Tablet 07/29/2017 Provider: Diagnosis: Last Documented On 7 2:44PM By MIEK LAYTON ; [facility] Topamax 200MG Oral Tablet 07/29/2017 Provider: Diagnosis: Last Documented On 7 2:44PM By MIKE LAYTON ; [facility] Montelukast Sodium 10MG Oral Tablet 07/29/2017 Provi aren: Diagnosis: Last Documented On 7 2:45PM By MIKE LAYTON ; [facility] Ibuprofen 400MG Oral Tablet 07/29/2017 Provider: Diagnosis: Last Documented On 7 2:45PM By MIKE LAYTON ; [facility] Mapap 325MG Oral Tablet 07/29/2017 Provider: Diagnosis: Last Documented On 7 2:45PM By MIKE LAYTON ; [facility] Meclizine HCl 12.5MG Oral Tablet 07/29/2017 Provider : Diagnosis: Last Documented On 7 2:46PM By MIKE LAYTON ; [facility] Mi-Acid 321-632-83KF/5ML Oral Suspension 07/29/2017 Provider: Diagnosis: Last Documented On 7 2:46PM By MIKE LAYTON ; [facility] Polyethylene Glycol 3350 Powder 07/29/2017 Provider: Diagnosis: Last Documented On 7 2:46PM By MIKE LAYTON ; [facility] Nystatin-Triamcinolone 854774-7.1UNIT/GM-% External Cr eam 07/29/2017 Provider: Diagnosis: Last Documented On 7 2:47PM By MIKE LAYTON ; [facility]S Triple Antibiotic External Ointment 07/29/2017 P rovider: Diagnosis: Last Documented On 7 2:47PM By MIKE LAYTON ; [facility] Banzel 400MG Oral Tablet 07/29/2017 Provider: Diagnosis: Last Documented On 7 2:38PM By MIKE LAYTON ; [facility] Mucinex 600MG Oral Tablet, extended-release 12 hour Provider: Diagnosis: Last Documented On 7 2:43PM By MIKE LAYTON ; [facility] Keppra 100MG/ML Oral Solution 07/29/2017 Provider: Diagnosis: Last Documented On 7 2:43PM By MIKE LAYTON ; [facility] Divalproex Sodium 500MG Oral Tablet, enteric coated Provider: Diagnosis: Last Documented On 7 2:43PM By MIKE LAYTON ; [facility] ClonazePAM 2MG Oral Tablet 07/29/2017 Provider: Diagnosis: Last Documented On 7 2:42PM By MIKE LAYTON ; [facility] Medications Administered Includes: Administered Medications from this encounter No Administered Medications Recorded Vital Signs Includes: Vital Signs from this encounter Vital Name 09/15/2018 02:15P Blood Pressure Sitting L 132/70 BP Cuff Size Large Height (in) 64 Weight (lb) 200 Body Mass Index (kg/m2) 34.3 Body Surface Area (m2) 2.0 Last Documented: On 09/15/2018 2:19PM ; [facility] Results Includes: Results discussed during this encounter THINPREP TIS AND HPV mRNA E6/E7 [employer] Ordered by JAXON GARCIA MD on Collected: 07/29/2017 Reported: 08/01/20 17 12:52 Last Documented On 1:54PM ; [facility] Reviewed on 08/02/2017; All test results are final unless otherwise noted. HPV mRNA E6/E7 Not Detected (Not Detected) N (Normal) Last Documented On 1:54PM ; [facility] Note: This test was performed using the APTIMA HPV Assay ([employer]This assay detects E6/E7 viral messenger RNA (mRNA) from 14high-risk HPV types (16,18,31,33,35,39,45,51,52,56,58,59,66,68). SOURCE: Cervix, Endocervix N (Normal) Last Documented On 1:54PM ; [facility] CLINICAL INFORMATION: Routine exam N (Normal) Last Documented On 1:54PM ; [facility] LMP: 07/10/2017 N (Normal) Last Documented On 1:54PM ; [facility] PREV. PAP: 02/22/2014 N (Normal) Last Documented On 1:54PM ; [facility] PREV. BX: NONE GIVEN N (Normal) Last Documented On 1:54PM ; [facility] STATEMENT OF ADEQUACY: Satisfactory for evaluation. Endocervical/transformation zone component present. N (Normal) Last Documented On 1:54PM ; [facility] INTERPRETATION/RESULT: Negative for intraepithelial lesion or malignancy. N (Normal) Last Documented On 1:54PM ; [facility] COMMENT: This Pap test has been evaluated with computer assisted technology. N (Normal) Last Documented On 1:54PM ; [facility] OIL WELL CABLE TOOL OPERATOR: LAUREN CONNOR(ASCP) CT screening location: [place] [address] [place] [address] N (Normal) Last Documented On 7 1:54PM ; [facility] History of Present Illness Includes: History of Present Illness from this encounter HPI GARY EASON is a 33 year old female. - Medication list reviewed - PRIMARY CARE PROVIDER : Dr Arenas Social History Description Last Updated Sexually active 12/28/2019 Last Documented On 8 2:08PM ; [facility] Smoking status : Never smoker 09/15/2018 Last Documented On 8 2:52PM ; [facility] Procedures and Surgical History Includes: Procedures from this encounter Procedures Code Diagnosis Performing Provider Service L ocation Service Date low fat diet Last Documented On 8 2:17PM ; [facility] Surgical History Last Updated Surgical / procedural histor y ankle fracture repair 2006---fell during seizure ~tubal ligation 2002 ~ ~3 ankle fractures, 2 w/o(?) surgeries---during seizure falls ~cateract left eye 09/15/2018 Last Documented On 8 2:52PM ; [facility] Tonsillectomy 09/15/2018 Last Documented On 8 2:52PM ; [facility] History of tubal ligation 09/15/2018 Last Documented On 8 2:52PM ; [facility] Medical History Includes: Medical History addressed during this encounter Description Last Updated History of hyperlipidemia due to siezure meds 09/15/2018 Last Documented On 8 2:52PM ; [facility] LMP: 09/03/2018 09/15/2018 Last Documented On 8 2:52PM ; [facility] Not sexually active 09/15/2018 Last Documented On 8 2:52PM ; [facility] History of Pap smear done 07/29/201709/04 Last Documented On 8 2:52PM ; [facility] Result: normal 09/15/2018 Last Documented On 8 2:52PM ; [facility] Pt's mother, grandmother, an d great-grandmother had condition called hemorrhaging menses ~ ~Pt maternal aunt had endometrial cancer 07/29/2017 Last Documented On 8 2:08PM ; [facility] 0 07/29/2017 Last Documented On 8 2:08PM ; [facility] Family History Includes: Family History addressed during this encounter Description Last Updated Maternal aunt's history of uterine cance r maternal aunt 09/15/2018 Last Documented On 8 2:52PM ; [facility] Maternal grandmother's history of diabet es mellitus maternal grandparents 09/15/2018 Last Documented On 8 2:52PM ; [facility] Maternal grandmother's history of hypert ension maternal grandparetns 09/15/2018 Last Documented On 8 2:52PM ; [facility] Paternal grandfather's history of pure h ypercholesterolemia pgf 09/15/2018 Last Documented On 8 2:52PM ; [facility] Paternal history of family history of he art disease mgf 09/15/2018 Last Documented On 8 2:52PM ; [facility] Review of Systems Includes: Review of Systems [...] Location Date Check-In Time Check-Out Time Diagnosis EDUCATION PROGRAM ASSOCIATE EXAM POLO MILLIGAN [facility] MANAGER PRIMARY CARE 8 2:04PM 2:57PM Normal Female Exam Insurance Includes: Active Insurance Policies Plan Name Member ID Group # Subscriber Relationship Effect ayah Dates 1 - [facility] [id number] GARY EASON Self Clinical Notes Includes: Clinical Notes from this encounter No Clinical Notes Recorded
--- OUTSIDE RECORDS SUMMARY | 2025-01-18 12:33 | XMS_ITS | Encounter Summary ---
Author Organization [facility] Address [address] [place] [address] Phone Care Team Providers Care Physicians Assistant Name Role Phone Roney Arenas MD Primary Care Provider [phone] Efrem Hoover MD Unavailable Reason for Visit * Reason Comments Medication Refill Encounter Details Date Type Department Care Team (Late st Contact Info) Description 07/14/2020 [facility] - [place] [address] [place] [id number] Roney Arenas MD [address] [place] [address] Medication Refill Social History Tobacco Use Types Packs/Day Years Used Date Smoking Tobacco: Never Smokeless Tobacco: Never Alcohol Use Standard Drinks/Week Comments No 0 (1 standard drink = 0.6 oz pur e alcohol) Comments No Sex and Gender Information Value Date Recorded Sex Assigned at Not on file Legal Sex Female 11:59 PM CDT Gender Identity Not on file Sexual Orientation Not on file documented as of this encounter Miscellaneous Notes * Telephone Encounter - Roney Arenas MD - 07/14/2020 9:31 AM CDT Patient's MiraLax was refilled for 1 year on May 16, 2020 * Telephone Encounter - Kirstin Sheehan RN - 07/14/2020 8:55 AM CDT Medication failed the protocol, provider to review and approve the medication order. Requested Prescriptions Pending Prescriptions Disp Refills ClearLax 17 GM/SCOOP Powder [Pharmacy Med Name: CLEARLAX POWD 17 PWDR] 510 g 0 Sig: MIX 17G IN LIQUID AND CONSUME EVERY OTHER DAY Gastroenterology: Laxatives Passed - 07/14/2020 8:39 AM Passed - Valid encounter within last 12 months Past Office Visits Recent Outpatient Visits 4 months ago Encounter for health maintenance examination (Adult) [facility] - Roney Tripp MD 6 months ago Mixed hyperlipidemia [facility] - Avni Guzman PAC 10 months ago Preop examination [facility] - Avni Guzman PAC 1 year ago Encounter for health maintenance examination (Adult) [facility] - Roney Tripp MD 1 year ago Epilepsy, myoclonic, intractable (HCC) [facility] - Avni Guzman PAC Upcoming Appointments Future Appointments In 7 months Roeny Arenas MD [facility] - [address] ENTRY EXAMINER - Recent and Past Visits Recent Visits Date Type Provider Dept 03/04/20 Office Visit Roney Arenas MD [facility] 01/14/20 Office Visit Avni Curry PAC [facility] 09/04/19 Office Visit Avni Curry PAC [facility] [place] Showing recent visits within past 460 days with a meds authorizing provider and meeting all other requirements Future Appointments No visits were found meeting these conditions. Showing future appointments within next 90 days with a meds authorizing provider and meeting all other requirements documented in this encounter Plan of Treatment Upcoming Encounters Date Type Department Care Team (Late st Contact Info) Description 03/26/2025 11:00 AM CDT Office Visit [facility] Primary Care - [place] [address] [place] [id number] Roney Arenas MD [address] [place] [address] documented as of this encounter Visit Diagnoses Not on filedocumented in this encounter Additional Health Concerns Assessment Noted Time PHQ-9 Depression Total Score: 0 07/18/20 18 10:00 AM CDT documented as of this encounter Care Teams Physicians Assistant Relationship Specialty Start Date End Date Roney Arenas MD [address] [place] [address] PCP - General Internal Medicine 06/04/17 Efrem Hoover MD [address] [place] [address] [address] [place] [address] Consulting Physician Orthopaedic Surgery 06/04/17 Roberto Oakley MD Consulting Physician Dermatology 06/04/17 Hua Balderas MD Consulting Physician Neurology 06/04/17 Cordelia Iqbal MD Consulting Physician Allergy & Immunology 06/04/17 documented as of this encounter
== END 2025-01-18 10:25 | disposition home or self-care (01) ==
LOC: ANHIMG 10:25
PROVIDERS: PCP Internal Medicine; Visit Provider Obstetrics & Gynecology
DX: R92.8 Other abnormal and inconclusive findings on diagnostic imaging of breast (principal)
CPT/HCPCS: 76642

== ENCOUNTER 2025-07-26 10:46 | Outpatient (CLI) | payer OTHER, SELFPAY ==
--- NOTE | ~2025-07-26 | MMUS_ITS ---
EXAMINATION: MM diagnostic brittany BI w frank, US breast LT limited INDICATION: 40-year old female; BI-RADS 3, short-term follow-up probably benign left breast finding. COMPARISON: 07/21/2024 and 06/26/2024 TECHNIQUE: Digital breast tomosynthesis True lateral, CC and MLO views of both breasts, with spot compression views of the LEFT breast were obtained with computer-aided detection to assist in interpretation of the study. MAMMOGRAM FINDINGS: There are scattered areas of fibroglandular density. The previously reported probably benign circumscribed low density mass in the upper inner at middle depth in the left breast reidentified is unchanged. No new suspicious mass, calcification or architectural distortion to suggest malignancy in either breast breast. LEFT BREAST ULTRASOUND FINDINGS: Targeted evaluation of the area of concern was completed. 0.3 cm circumscribed hypoechoic mass at 11:00 location 7 cm from the nipple in the LEFT breast redemonstrated is Unchanged. IMPRESSION: Probable Benign LEFT breast finding is unchanged. No mammographic evidence of malignancy within the Right breast. RECOMMENDATION: 6 month follow-up diagnostic BILATERAL mammogram and LEFT breast ultrasound. BI-RADS 3, PROBABLY BENIGN Reviewed, dictated and finalized at location B. IMPRESSION: Probable Benign LEFT breast finding is unchanged. No mammographic evidence of malignancy within the Right breast. RECOMMENDATION: 6 month follow-up diagnostic BILATERAL mammogram and LEFT breast ultrasound. BI-RADS 3, PROBABLY BENIGN
--- OUTSIDE RECORDS SUMMARY | 2025-07-26 11:56 | XMS_ITS | Clinical Summary ---
Author Organization [facility] Address [address] [place] [address] Phone Care Team Providers Care Fiberglass Product Tester Name Role Phone Roney Arenas MD Primary Care Provider [phone] Efrem Hoover MD Unavailable Allergies Active Allergy Reactions Criticality Noted Date Comments Lorazepam Hallucinations 06/04/2017 Medications adapalene (DIFFERIN) 0.1 % Gel Apply nightly. Apply pea seized dot to face, dot on forehead, nose, cheeks, and chin and spread out evenly all over face once every day Active clindamycin (CLEOCIN T) 1 % Lotion Apply every morning. use thin film on affected area Active LevETIRAcetam (KEPPRA) 1000 MG Tablet Take 1,000 mg by mouth 2 times daily. Takes 2 tabs twice daily. Active topiramate (TOPAMAX) 100 MG Tablet Take 100 mg by mouth 2 times daily. Take with 200 mg to equal 300 mg BID Active topiramate (TOPAMAX) 200 MG Tablet Take 200 mg by mouth 2 times daily. Take with 100 mg to equal 300 mg BID. Active rufinamide (BANZEL) 400 MG Tablet Take 2,000 mg by mouth 2 times daily. Active divalproex (DEPAKOTE) 500 MG Tablet Delayed Response Take 500 mg by mouth 2 times daily. Active clonazePAM (KLONOPIN) 2 MG Tablet Take 1 Tab by mouth 2 times daily. 180 Tab 09/20/20 17 Active acetaminophen (TYLENOL) 650 MG Tablet Controlled Release Take 1 Tab by mouth every 6 hours as needed for Mild or more severe pain. 100 Tab 05/13/20 Active ibuprofen (MOTRIN) 400 MG Tablet Take 1 Tab by mouth every 6 hours as needed for Moderate or more severe pain. 360 Tab 05/13/20 Active polyethylene glycol (GLYCOLAX, MIRALAX) 17 g Pack Take 1 Packet by mouth Every other day. 45 Packet 3 05/16/20 Active calcium citrate-vitamin D (CITRACAL PETITES/VITAMIN D) 200-250 MG-UNIT Tablet Take 2 Tabs by mouth daily. 180 Tab 05/16/20 Active guaiFENesin (MUCINEX) 600 MG TABLET SR 12 HR Take 1 Tab by mouth 2 times daily as needed for Congestion or Cough. Takes 2 tabs twice daily 62 Tab 06/03/20 Active Sunscreens (Chapstick Moisturizer) STICK Apply as needed to lips 1 Stick 09/09/20 Active benzonatate (Tessalon Perles) 100 MG Capsule Take 1 Capsule by mouth 3 times daily as needed for Cough. 30 Capsule 10/30/20 22 Active Banophen 25 MG Capsule Take 25 mg by mouth every 6 hours as needed for Itching or Allergies. 01/17/20 23 Active Carboxymethylcellu lose Sodium (REFRESH PLUS OP) Place 1 Drop in both eyes 2 times daily. Active atorvastatin (LIPITOR) 10 MG TabletIndications: Mixed hyperlipidemia TAKE 1 TABLET BY MOUTH ONCE EVERY DAY FOR MIXED HYPERLIPIDEMIA (8PM) 31 Tablet 05/20/20 25 Active Allergy Relief Cetirizine 10 MG Tablet TAKE 1 TABLET BY MOUTH ONCE EVERY DAY FOR ALLERGIC RHINITIS (8PM) 31 Tablet 05/20/20 25 Active montelukast (SINGULAIR) 10 MG Tablet TAKE 1 TABLET BY MOUTH EVERY NIGHT AT BEDTIME FOR SEASONAL ALLERGIES 31 Tablet 05/20/20 25 Active omeprazole (PriLOSEC) 40 MG CAPSULE DELAYED RELEASEIndications :Gastroesophageal reflux disease without esophagitis TAKE 1 CAPSULE BY MOUTH ONCE EVERY DAY FOR GASTRO-ESOPHAGREA L REFLUX DISEASE 31 Capsule 05/20/20 25 Active Norelgestromin-Eth Estradiol (Xulane) 150-35 MCG/24HR PATCH WEEKLY 1 Patch by Transdermal route every 7 days. Active Multivitamin Tablet TAKE 1 TABLET BY MOUTH ONCE EVERY DAY 31 Tablet 05/25/20 25 Active Saline (Simply Saline) 0.9 % Aerosol Solution 1 to 2 puffs each nostril every hour as needed. 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 Overview (07/18/2018): Overview: Description: mild mental retardation Seizure disorder ADD (attention deficit disorder) Overview (06/04/2017): with hyperactivity Depression, reactive Mixed hyperlipidemia Mood disorder Allergic rhinitis Overview (06/07/2021): Dust mites Resolved Problems Problem Noted Date Diagnosed Date Resolved Date Closed fracture of ankle 03/22/202310/2025 Fall 11/26/2018 02/27/2019 Ingrown left greater toenail 01/03/2018 02/21/2018 Pain of left great toe 01/03/201802/21 Encounters Date Type Department Care Team Description 07/08/2025 Telephone [facility] [address] [place] [phone] Roney Arenas MD Advice Only 06/10/2025 10:01 AM CDT - 06/10/2025 11:59 PM CDT [facility] [address] [place] [address] Roney Arenas MD Discharge Disposition: Discharged to home or Selfcare 06/10/2025 Results Follow-Up [facility] - [place] [phone] Roney Arenas MD VITAMIN B12, FOLIC ACID (FOLATE), VITAMIN D, 25 HYDROXY TOTAL, KENTRELL BONE DENSITOMETRY AXIAL SKELETON 06/10/2025 Travel 06/04/2025 Telephone [facility] - [place] [address] Roney Arenas MD Medication Refill 06/02[facility] [place] [address] [place] [address] Roney Arenas MD Medication Refill 06/01/2025 Telephone [facility] [place] [address] [place] [address] Roney Arenas MD Medication Refill 05/31/2025 [facility] [place] [address] [place] [address] Roney Arenas MD Medication Refill 05/28/2025 [facility] [place] [address] [place] [address] Roney Arenas MD Medication Refill 05/25/2025 [facility] [place] [address] [place] [address] Roney Arenas MD Medication Refill 05/25/2025 [facility] [place] [address] [place] [address] Roney Arenas MD Medication Refill 05/21/2025 [facility] [place] [address] [place] [address] Roney Arenas MD Medication Refill 05/20/2025 Refill [facility] [place] [address] [place] [address] Roney Arenas MD Medication Refill 05/20/2025 [facility] [place] [address] [place] [address] Roney Arenas MD Medication Refill 05/13/2025 Telephone [facility] [place] [facility] [place] [phone] Roney Arenas MD Form Completion from Last 3 Months Immunizations Immunization Administration Dates Next Due Covid-19, Mrna, Lnp-s, PF, 1 00 mcg/0.5 mL Dose (Moderna) 07/23/2025,01/06/2021,12/09/2020 Covid-19, Mrna, Lnp-s, Pf, 1 00 Mcg Or 50 Mcg Dose (MODERNA) 09/22/2022 DTAP VACCINE 07/29/2009, 9,11/29/1985,10/05,1984,1984 H1N1 Flu, Unspecified Formulation 09/04/2009 HIB Vaccine (PRP-T) 04/12/1986 Hepatitis A Vaccine 12/06/1997,06/04/1997,1996 Hepatitis B Vaccine 03/30/1997,10/30/1996,1995 Human Papillomavirus Vaccine (HPV), quadrivalent 08/04/2007,04/11/2007,02/07/2007 Influenza Vaccine 07/23/2025 Influenza Vaccine greater than 3 yrs ,07/23/2017,07/29/2009,08/04,09/21/2003,09/05/1999,08/15/19 98,08/26/1997 07/05/2019 Influenza Vaccine, MDCK,quad rivalent, pres free 07/28/2022 Influenza Vaccine, Quadrivalent, PF 07/05,09/10/2016,08/05/2015,07/06 Influenza, recombinant, trivalent, PF 07/04/2024 MMR Vaccine 04/28/1992,07/29/1985 Meningococcal Vaccine 05/24/2005 OPV 04/30/1989, 6,1984,06/04 Pneumococcal Vaccine Adult - 23 Valent 01/05/2005 Pneumococcal Vaccine Peds - 7 Valent 08/27/1996 Pneumococcal conjugate PCV20 , polysaccharide [id number] conjugate, adjuvant, PF 03/29/2023 TB Skin Test [...] drink = 0.6 oz pur e alcohol) [facility] [employer] Answer Date Recorded In the past 12 months has th e electric, gas, oil, or water company threatened to shut off services in your home? Patient declined 03/15/2025 Social Connection and Isolation Panel Answer Date Recorded In a typical week, how many times do you talk on the phone with family, friends, or neighbors? Patient declined 03/15/2025 How often do you get togethe r with friends or relatives? Patient declined 03/15/2025 How often do you attend yazidism or synagogue serv ices? Patient declined 03/15/2025 Do you belong to any clubs o r organizations such as yazidism groups, unions, fraternal or athletic groups, or school groups? Patient declined 03/15/2025 How often do you attend meet ings of the clubs or organizations you belong to? Patient declined 03/15/2025 Are you , , di vorced, , never , or living with a partner? Patient declined 03/15/2025 AUDIT-C Answer Date Recorded Q1: How often do you have a drink containing alc ohol? Patient declined 03/15/2025 Q2: How many drinks containi ng alcohol do you have on a typical day when you are drinking? Patient declined 03/15/2025 Q3: How often do you have si x or more drinks on one occasion? Patient declined 03/15/2025 Overall Financial Resource Strain (CARDIA) Answe r Date Recorded How hard is it for you to pa y for the very basics like food, housing, medical care, and heating? Patient declined 03/15/2025 PHQ-2 Answer Date Recorded Total Score - Questions 1-9 0 03/04 [facility] - Occupational Stress Questionnaire Answer Date Recorded Do you feel stress - tense, restless, nervous, or anxious, or unable to sleep at night because your mind is troubled all the time - these days? Patient declined 03/15/2025 Exercise Vital Sign Answer Date Recorde d On average, how many days pe r week do you engage in moderate to strenuous exercise (like a brisk walk)? Patient declined On average, how many minutes do you engage in exercise at this level? Patient declined 03/15/2025 Hunger Vital Sign Answer Date Recorded Within the past 12 months, y ou worried that your food would run out before you got the money to buy more. Patient declined Within the past 12 months, t he food you bought just didn't last and you didn't have money to get more. Patient declined 10/2025 PRAPARE - Transportation Answer Date Re corded In the past 12 months, has l ack of transportation kept you from medical appointments or from getting medications? Patient declined 03/15/2025 In the past 12 months, has l ack of transportation kept you from meetings, work, or from getting things needed for daily living? Patient declined 03/15/2025 Housing Stability Vital Sign Answer Tera e Recorded In the last 12 months, was t here a time when you were not able to pay the mortgage or rent on time? Patient declined 03/15/20 25 In the past 12 months, how m any times have you moved where you were living? 0 03/15/2025 At any time in the past 12 m ont, were you homeless or living in a [place] facility (including now)? Patient declined 03/15/2025 Comments No Sex and Gender Information Value Date Recorded Sex Assigned at Not on file Legal Sex Female 11:59 PM CDT Gender Identity Not on file Sexual Orientation Not on file Last Filed Vital Signs Vital Sign Reading Time Taken Comments Blood Pressure 110/72 03/15/2025 1:14 PM CDT Pulse 80 03/15/2025 1:14 PM CDT Temperature 36.1 C (97 F) 03/15/2025 1:14 PM CDT Respiratory Rate 20 03/15/2025 1:14 PM CDT Oxygen Saturation 98% 03/15/2025 1:14 PM CDT Inhaled Oxygen Concentration - - Weight 78.1 kg (172 lb 1.6 oz) 03/15/2025 1:14 P M CDT Height 163.2 cm (5' 4.25) 03/15/2025 1:14 PM CD T Body Mass Index 29.31 03/15/2025 1:14 PM CDT Plan of Treatment Upcoming Encounters Date Type Department Care Team (Late st Contact Info) Description 03/21/2026 1:00 PM CDT Office Visit [facility] - Primary Care - [place] [address] [place] [address] Roney Arenas MD [address] [place] [address] Health Maintenance Due Date Last Done Comments Pap Smear 11/11/2023 11/11/2020, 07/06, 07/29/2017, Additional history exists Mammogram 06/26/2025 06/26/2024 Influenza Immunization (#1) 07/05/202507/05, 07/04/2024, 07/28/2022, Additional history exists Cervical Cancer Screening (CCS) 11/11/2025 HPV/Cotest 11/11/2025 [...] on patient's age to complete this topic Human Papillomavirus (HPV) Immunization Completed 08/04/2007, 04/11/2007, 02/07/2007 Pneumococcal Immunization Combined Aged Out 03/29/2023, 01/05/2005, 08/27/1996 No longer eligible based on patient's age to complete this topic Hepatitis C Virus (HCV) Screening Completed 03/27/2024 SARS-COV-2 Immunization Completed 07/23/20, 07/04/2024, 02/23/2024, Additional history exists Discussion re Starting/Frequency of Mammograms Completed 07/21/2024, 06/26/2024 Rotavirus Immunization Aged Out No lo nger eligible based on patient's age to complete this topic Procedures Procedure Name Priority Date/Time Associated Diagnosis Comments KENTRELL BONE DENSITOMETRY AXIAL SKELETON Routine 06/10/2025 10:30 AM CDT Seizure disorder (HCC) VITAMIN D, 25 HYDROXY TOTAL Routine 06/10/2025 9:44 AM CDT Seizure disorder (HCC) FOLIC ACID (FOLATE) Routine 06/10/2025 9 :44 AM CDT Seizure disorder (HCC) VITAMIN B12 Today 06/10/2025 9:44 AM CDT Seizure disorder (HCC) MAMMOGRAM UNILATERAL GENERIC 07/21/2024 12:00 AM CDT MAMMOGRAM BILATERAL GENERIC 06/26/2024 12:00 AM CDT HEPATITIS C ANTIBODY Routine 03/27/2024 11:23 AM CDT Encounter for hepatitis C screening test for low risk patient HUMAN PAPILLOMA VIRUS (HPV) 11/11/2020 12:00 AM JACKSPOOLER PATHOLOGY CYTOLOGY AIRFIELD OPERATIONS SPECIALIST 11/11/2020 12:00 AM JACKSPOOLER from Last 3 Months or Most Recently Relevant to Health Maintenance Results * KENTRELL BONE DENSITOMETRY AXIAL SKELETON (06/10/2025 10:30 AM CDT) Anatomical Region Laterality Modality BODY N/A Computed Radiogr aphy 06/10/2025 2:08 PM CDT Impressions 06/10/2025 2:11 PM CDT IMPRESSION: 1. Normal bone mass. REFERENCE: Bone mineral density: T-Score: Normal (T-score above or = -1.0) Low bone mass (T-score between -1.0 and -2.5) replaces the previously used term osteopenia Osteoporosis (T-score = or below -2.5) Z-Score: Within the expected range for age (Z-score above -2.0) Below the expected range for age (Z-score is -2.0 or below) Please see below follow up recommendations. Medical evaluation for secondary causes of low bone mineral density may be appropriate. FRAX is a World Health Organization validated fracture risk assessment tool that calculates a person's 10 year probability of a major osteoporosis related fracture and hip fracture. According to the National Osteoporosis Foundation guidelines, postmenopausal women and men age 50 or older with low bone mass and a 10 year probability of a major osteoporosis related fracture = or greater than 20% or a 10 year probability of a hip fracture = or greater than 3% should be considered for pharmacological treatment for the prevention of osteoporosis. 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 CLINICAL INFORMATION: Current height: 64 inches Maximum height: 64 inches Weight: 172 pounds Risk factors: Adult fracture, hip or vertebral fracture, seizure disorder COMPARISON: None available FINDINGS: AP LUMBAR SPINE L1-L4: Total BMD is 1.569 g/cm2 T-score is 3.0 LEFT HIP: Total BMD is 1.202 g/cm2 T-score is 1.5 Femoral neck BMD is 1.002 g/cm2 T-score is -0.3 FRAX: FRAX not reported due to T-scores of hip, femoral neck and/or spine being at or above -1.0 (Normal). THIS IS AN ELECTRONICALLY VERIFIED FINAL REPORT 06/10/2025 2:08 PM - Electronically signed by Liu Multani M.D. 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 CLINICAL INFORMATION: Current height: 64 inches Maximum height: 64 inches Weight: 172 pounds Risk factors: Adult fracture, hip or vertebral fracture, seizure disorder COMPARISON: None available FINDINGS: AP LUMBAR SPINE L1-L4: Total BMD is 1.569 g/cm2 T-score is 3.0 LEFT HIP: Total BMD is 1.202 g/cm2 T-score is 1.5 Femoral neck BMD is 1.002 g/cm2 T-score is -0.3 FRAX: FRAX not reported due to T-scores of hip, femoral neck and/or spine being at or above -1.0 (Normal). THIS IS AN ELECTRONICALLY VERIFIED FINAL REPORT 06/10/2025 2:08 PM - Electronically signed by Liu Multani M.D. MF: [id number] Report ID: [id number] Reading Location: [place] [address] IMPRESSION: 1. Normal bone mass. REFERENCE: Bone mineral density: T-Score: Normal (T-score above or = -1.0) Low bone mass (T-score between -1.0 and -2.5) replaces the previously used term osteopenia Osteoporosis (T-score = or below -2.5) Z-Score: Within the expected range for age (Z-score above -2.0) Below the expected range for age (Z-score is -2.0 or below) Please see below follow up recommendations. Medical evaluation for secondary causes of low bone mineral density may be appropriate. FRAX is a World Health Organization validated fracture risk assessment tool that calculates a person's 10 year probability of a major osteoporosis related fracture and hip fracture. According to the National Osteoporosis Foundation guidelines, postmenopausal women and men age 50 or older with low bone mass and a 10 year probability of a major osteoporosis related fracture = or greater than 20% or a 10 year probability of a hip fracture = or greater than 3% should be considered for pharmacological treatment for the prevention of osteoporosis. For further information, including treatment recommendations, please refer to the 2019 ISCD Official Positions (http://www.iscd.org) and the NOF's Clinician's Guide to Prevention and Treatment of Osteoporosis (http://www.nof.org/professionals/clinical-guidelines) us Roney Arenas MD IMG DEXA ORDERABLES Final Result * VITAMIN D, 25 HYDROXY TOTAL (06/10/2025 9:44 AM CDT) Pathologist [facility] VITAMIN D, 25 HYDROX 99.0 ng/mL 06/10/2025 11:26 AM CDT [facility] Blood Venipuncture / Unknown 06/10/2025 9:44 AM CDT 06/10/2025 10:30 AM CDT Narrative [facility] - 06/10/2025 11:26 AM CDT Published reference ranges for Vitamin D vary depending on time and place and method of testing, and on patient's age, sex, ethnicity and levels of other measured analytes such as parathormone, calcium and phosphorus. The result should be evaluated in conjunction with clinical findings and suspicions. [place] [employer] and [facility] Clinical Practice Guidelines: Status Vitamin D levels (ng/mL) Deficient <=20 At risk of inadequacy 21-29 Sufficient 30-100 Centers of Disease Control and Prevention Guidelines: Status Vitamin D levels (ng/mL) Deficient <13 At risk of inadequacy 13-19 Sufficient 20-50 Possibly harmful >50 References: [place] [employer], 2010 Dietary reference intakes for calcium and vitamin D. [place]: The National Academies Press. Katerina M, Pamela N, Adalid ROJAS, et al., Evaluation, treatment, and prevention of Vitamin D deficiency: an Endocrinology Clinical Practice Guideline. JCEM 2011 96: 7 1222-3324. Iram A, Isauro C, Isi D, et al., Vitamin D Status: [place], 3321-5849, [facility] data brief, no. 59, MD Bret: [facility] for Health Statistics. 2011. Roney Arenas MD CHEMISTRY ORDERABLES Josselin l Result Performing Organization Address City/[facility]/ZIP Co de Phone Number [facility] [place] [address] * (ABNORMAL) VITAMIN B12 (06/10/2025 9:44 AM CDT) VITAMIN B12 1,717(H) 213 - 816 pg/mL 06/10/2025 11:26 AM CDT [facility] Blood Venipuncture / Unknown 06/10/2025 9:44 AM CDT 06/10/2025 10:30 AM CDT Roney Arenas MD CHEMISTRY ORDERABLES Josselin l Result Performing Organization Address City/[facility] Co de Phone Number [facility] [place] [address] * FOLIC ACID (FOLATE) (06/10/2025 9:44 AM CDT) FOLATE 11.2 7.0 - 31.4 ng/mL 06/10/2025 11:26 AM CDT [facility] IS THE PATIENT REQUIRED TO BE FASTING? No 06/10/2025 11:26 AM CDT [facility] Blood Venipuncture / Unknown 06/10/2025 9:44 AM CDT 06/10/2025 10:30 AM CDT Roney Arenas MD CHEMISTRY ORDERABLES Josselin l Result Performing Organization Address City/[facility]/ZIP Co de Phone Number [facility] [place] [address] * MAMMOGRAM UNILATERAL MISCELLANEOUS (07/21/2024 12:00 AM CDT) 07/21/2024 us Provider Scan IMG MAMMO ORDERABLES Final Resul t SCAN * MAMMOGRAM BILATERAL MISCELLANEOUS (06/26/2024 12:00 AM CDT) 06/26/2024 us Provider Scan IMG MAMMO ORDERABLES Final Resul t Performing Organization Address [facility] Co de Phone Number SCAN * HEPATITIS C ANTIBODY (03/27/2024 11:23 AM CDT) hepatitis C antibody 0.09 <1 S/CO 03/27/2024 10:53 PM CDT [facility] Comment: Signal/Cutoff ratio < 0.79 is Nondetected [...] ORDERABLES Josselin l Result Performing Organization Address City/[facility] Co de Phone Number [facility] [address] [place] [address], [place] * PATHOLOGY CYTOLOGY [employer]FIELD OPERATIONS SPECIALIST (11/11/2020 12:00 AM JACKSPOOLER) 11/11/2020 us Not On File Provider PATHOLOGY/CYTOLOGY ORDERABL ES Final Result [facility] * HUMAN PAPILLOMA VIRUS (HPV) (11/11/2020 12:00 AM JACKSPOOLER) 11/11/2020 us Not On File Provider LAB SEND OUTS Final Resul t [facility] from Last 3 Months or Most Recently Relevant to Health Maintenance Insurance MEDICAID [place] Advance Directives Documents on File Type Date Recorded 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 Guardian of Person 03/18/2025 11:54 AM VANITA STANFORDAGUSTINANELLA, 02/03/2024 Other Advance Directive 03/10/2021 10:29 AM GUARDIAN OF PERSON Care Teams Fiberglass Product Tester Relationship Specialty Start Date End Date Roney Arenas MD [address] [place] [address] PCP - General Internal Medicine 06/04/17 Efrem Hoover MD [address] [place] [address] [address] [place] [address] Consulting Physician Orthopaedic Surgery 06/04/17 Roberto Oakley MD Consulting Physician Dermatology 06/04/17 Hua Balderas MD Consulting Physician Neurology 06/04/17 Cordelia Iqbal MD Consulting Physician Allergy & Immunology 06/04/17
--- OUTSIDE RECORDS SUMMARY | 2025-07-26 11:56 | XMS_ITS | Clinical Summary ---
Author Organization [facility] Healthcare Address [address] [place] [address] Care Team Providers Care Parking Assistant Name Role Phone Roney Arenas MD Primary Care Provider + Allergies Active Allergy Reactions Criticality Noted Date Comments Lorazepam Hallucinations Medium 03/05/2014 Medications adapalene (DIFFERIN) 0.1 % gel Apply topically. Active diphenhydrAMINE (BENADRYL) 25 mg capsule 018 Active benzonatate (TESSALON) 200 mg capsule Active bismuth subsalicylate (PEPTO-BISMOL) suspension Active cetirizine (ZyrTEC) 10 mg tablet Take 1 tablet (10 mg total) by mouth Active clindamycin (CLEOCIN T) 1 % lotion Apply topically. Active ibuprofen (ADVIL,MOTRIN) 400 mg tablet Take 1 tablet (400 mg total) by mouth every 6 (six) hours as needed Active meclizine (ANTIVERT) 25 mg tablet Active montelukast (SINGULAIR) 10 mg tablet 018 Active multivitamin tabletIndication s:Vitamin Deficiency Prevention 018 Active norelgestromin-e thin.estradiol (ORTHO EVRA) 150-35 mcg/24 hrIndications:Pr egnancy Contraception Place on the skin Active nystatin-triamci nolone creamIndications :cutaneous candidiasis Apply topically. Active polyethylene glycol (MIRALAX) 17 gram/dose powder Active acetaminophen (TYLENOL) 325 mg tablet Active wheelchair deviceIndication s:seizure disorder,Unstead y Gait Manual wheelchair 1 each 021 Active sodium chloride 0.9 % aerosol,spray Administer 2 sprays into affected nostril(s) every 4 (four) hours as needed Active guaiFENesin ER (MUCINEX) 600 mg 12 hr tablet daily as needed Active Refresh Classic, PF, 1.4-0.6 % dropperette Active atorvastatin (LIPITOR) 10 mg tablet Take 1 tablet (10 mg total) by mouth daily 022 Active omeprazole (PriLOSEC) 40 mg capsule Take 1 capsule (40 mg total) by mouth daily 024 Active Tab-A-Dali 400 mcg tablet Active Topamax 200 mg tabletIndication s:Intractable myoclonic epilepsy (HCC) TAKE 1 TABLET BY MOUTH TWICE DAILY FOR MYOCLONIC EPILEPSY -GIVE BEFORE GETTING OUT OF BED IN THE AM-WAIT 30MIN BEFORE GETTING OUT OF BED (BRAND NAME ONLY) (7AM,7PM) 62 tablet 11 024 Active clonazePAM (KlonoPIN) 2 mg tabletIndication s:Myoclonic seizure (HCC) (CONTROL CYCLE) TAKE 1 TABLET BY MOUTH TWICE DAILY FOR MYOCLONIC SEIZURES (7AM,8PM) 60 tablet 5 025 Active Depakote 500 mg EC tabletIndication s:Intractable myoclonic epilepsy (HCC) TAKE 1 TABLET BY MOUTH TWICE DAILY FOR SEIZURES (GIVE BEFORE GETTTING OUT OF BED IN THE AM-THEN WAIT 30MINS BEFORE GETTING OUT OF BED)(7AM,8PM) (BRAND MEDICALLY NECESSARY) 62 tablet 11 025 Active Topamax 100 mg tabletIndication s:Intractable myoclonic epilepsy (HCC) TAKE 1 TABLET BY MOUTH TWICE DAILY WITH [id number]=[id number] FOR GENERALIZED EPILEPSY (7AM,7PM) (BRAND MEDICALLY NECESSARY) 62 tablet 025 Active BanzeL 400 mg tabletIndication s:Intractable myoclonic epilepsy (HCC) TAKE 5 TABLETS (2000MG) BY MOUTH TWICE DAILY WITH FOOD FOR INTRACTABLE MYOCLONIC EPILEPSY (7AM,5PM) (BRAND MEDICALLY NECESSARY) 310 tablet 11 025 Active levETIRAcetam (Keppra) 1,000 mg tabletIndication s:Intractable myoclonic epilepsy (HCC) Take 1 tablet (1,000 mg total) by mouth 2 (two) times a day 124 tablet 11 025 Active carboxymethylcel lulose (Refresh Plus) 0.5 % dropperette Administer 1 drop into affected eye(s) 2 (two) times a day 023 Active BanzeL 400 mg tabletIndication s:Intractable myoclonic epilepsy (HCC) TAKE 5 TABLETS (2000MG) BY MOUTH TWICE DAILY WITH FOOD FOR INTRACTABLE MYOCLONIC EPILEPSY (7AM,5PM) 310 tablet 11 024 2024 Discontinued Depakote 500 mg EC tabletIndication s:Intractable myoclonic epilepsy (HCC) TAKE 1 TABLET BY MOUTH TWICE DAILY FOR SEIZURES (GIVE BEFORE GETTTING OUT OF BED IN THE AM-THEN WAIT 30MINS BEFORE GETTING OUT OF BED)(7AM,8PM) *BRAND NAME ONLY* 62 tablet 024 2024 Discontinued Keppra 1,000 mg tabletIndication s:Intractable myoclonic epilepsy (HCC) TAKE 2 TABLETS (2000MG) BY MOUTH TWICE DAILY FOR INTRACTABLE MOCLONIC EPILEPSY (GIVE BEFORE GETTING OUT OF BED IN THE AM-THEN WAIT 30MIN BEFORE GETTING OUT OF BED) (7AM,8PM) 124 tablet 11 024 2024 Discontinued(R eorder) Topamax 100 mg tabletIndication s:Intractable myoclonic epilepsy (HCC) TAKE 1 TABLET BY MOUTH TWICE DAILY WITH [id number] FOR GENERALIZED EPILEPSY *BRAND NAME ONLY*(7AM,7PM) 62 tablet 024 2024 Discontinued clonazePAM (KlonoPIN) 2 mg tabletIndication s:Myoclonic seizure (HCC) (CONTROL CYCLE) TAKE 1 TABLET BY MOUTH TWICE DAILY FOR MYOCLONIC SEIZURES (7AM,8PM) 60 tablet 5 025 2024 Discontinued Active Problems Problem Noted Date Diagnosed Date Epistaxis 06/21/2025 Assessment & Plan (06/21/2025 11:33 AM CDT): Continue Nasal saline spray (Simply saline, Little Remedies, Robeson, Schaller) 2 second sprays or 2 squeezes into each nostril while looking down over the sink, do not need to sniff in 2-3 times daily Stop Flonase for at least 6 weeks due to recent nose bleeds Call if nose bleeds return Unilateral earache 12/23/2015 Reactive depression 09/02/2015 Nuclear senile cataract 10/21/2012 Hyperlipidemia 08/02/2009 Obesity 08/02/2009 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 Overview (02/14/2018): Description: mild mental retardation Encounters Date Type Department Care Team Description 07/23/2025 12:00 PM CDT Office Visit [facility] Neurology [address] 6th [place] [address] [place] [address] Hua Balderas MD Intractable myoclonic epilepsy (HCC) (Primary Dx); Moderate mixed hyperlipidemia not requiring statin therapy; Class 1 obesity without serious comorbidity in adult, unspecified BMI, unspecified obesity type 07/07/2025 Telephone [facility] [address] [place] [address] [place] [address] Hua Balderas MD Brand Keppra PA 07/07/2025 Telephone [facility]rology [address]th [place] [address] [place] [address] Hua Balderas MD Brand Banzel PA 06/21/2025 10:45 AM CDT Office Visit [facility] - [address] [place] [phone] Bisi Delarosa DO Epistaxis (Primary Dx) 05/05/2025 Telephone [facility] - [address] [place] [phone] Hailey Finch MA from Last 3 Months Surgical History Surgery Date Site/Laterality Comments WA LIG/TRNSXJ FLP TUBE ABDL/ VAG APPR UNI/BI Tubal Ligation - (Added by TW Conv) WA TONSILLECTOMY PRIMARY/SEC ONDARY <AGE 11 Tonsillectomy - [...] Never Tobacco Cessation:Counseling Given: Not Answered Comments No Sex and Gender Information Value Date Recorded Sex Assigned at Not on file Legal 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 Gender Identity Not on file Sexual Orientation Not on file Obstetrics History Last Filed Vital Signs Vital Sign Reading Time Taken Comments Blood Pressure 115/71 07/23/2025 10:50 AM CDT Pulse 76 07/23/2025 10:50 AM CDT Temperature 35.8 C (96.4 F) 05/13/2020 9:53 AM CDT Respiratory Rate 18 06/21/2025 10:40 AM CDT Oxygen Saturation 96% 06/21/2025 10:40 AM CDT Inhaled Oxygen Concentration - - Weight 76.8 kg (169 lb 6.4 oz) 07/23/2025 10:50 AM CDT Height 162.6 cm (5' 4.02) 07/23/2025 10:50 AM C DT Body Mass Index 29.06 07/23/2025 10:50 AM CDT Plan of Treatment Health Maintenance Due Date Last Done Comments Breast Cancer Screening-Mammogram 1984 Cervical Cancer Screening 1984 Depression Screening 1984 Hepatitis C Screening 1984 Regular Well Visit/Exam 18-64 2002 Varicella Vaccines (2 of 2 - 13+ 2-dose series) 06/24/2015 05/27/2015 Covid-19 Vaccine ( season) 2025 09/22/2022, 01/06/2021, 12/09/2020 Influenza Vaccine (#1) 2025 , 07/28/2022, 07/21/2020, Additional history exists DTaP/Tdap/Td Vaccine (8 - Td or Tdap) 11/19/2028 11/19/2018, 07/29/2009, 01/30/1999, Additional history exists Hepatitis B Screening Completed 03/30/1997 , 10/30/1996, 09/25/1996 Pneumococcal vaccine <65 Aged Out 01/05/2005, 08/05 No longer eligible based on patient's age to complete this topic HPV Vaccines Completed 08/04/2007, 06/2007, 02/07/2007 Medical Devices Implanted Type Area Technology Solutions Architect Device Identifier Shelf Expiration Date Model / Serial / Lot Orthopedic Hardware Right Ankle Ankle Insurance [facility] Advance Directives For more information, please contact: [phone] Documents on File Type Date Recorded Patient Multiple Slide Operator Expl anation Advance Directives and Living Will 06/21/2025 10:06 AM ADVANCE DIRECTIVE 04/20/2022 10:39 AM Vijay r of [employer] Care Teams Parking Assistant Relationship Specialty Start Date End Date Roney Arenas MD PCP - General Internal Medicine 08/01/18
--- OUTSIDE RECORDS SUMMARY | 2025-07-26 11:56 | XMS_ITS | Encounter Summary ---
Author Organization [facility] Address [address] [place] [address] Phone Care Team Providers Care Ditcher Operator Name Role Phone Lico Grimm MD Primary Care Provider [phone] Roney Arenas MD Primary Care Provider + Roney Arenas MD Primary Care Provider + Cordelia Iqbal MD Primary Care Provider Roney Arenas MD Primary Care Provider + Encounter Details Date Type Department Care Team (Late st Contact Info) Description 11/21/2012 Orders Only [facility] Flor Sloan MD [address] [place] [address] Social History Tobacco Use Types Packs/Day Years Used Date Smoking Tobacco: Never Assessed Comments Unknown Sex and Gender Information Value Date Recorded Sex Assigned at Not on file 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 Gender Identity Not on file Sexual Orientation [...] on filedocumented in this encounter Care Teams Ditcher Operator Relationship Specialty [place] [address] [address] PCP - General 04/19/17 06/30/17 [place] [address] [facility] [address] [address] PCP - General 07/01/17 04/03/18 [place] [address] [facility] [address] [address] PCP - General 04/04/18 04/04/18 Cordelia Iqbal MD [facility] [address] [address] PCP - General 04/05/18 07/31/18 [place] [address] [facility] [address] [address] PCP - General Internal Medicine 08/01/18 documented as of this encounter
--- OUTSIDE RECORDS SUMMARY | 2025-07-26 11:56 | XMS_ITS | Encounter Summary ---
Author Organization [facility] Address [address] [place] [address] Phone Care Team Providers Care Equine Internship Name Role Phone Roney Arenas MD Primary Care Provider [phone] Efrem Hoover MD Unavailable Reason for Visit * Reason Comments Medication Refill Encounter Details Date Type Department Care Team (Late st Contact Info) Description 06/02/2025 Refill [facility] - Primary Care - [place] [address] [place] [address] Roney Arenas MD [address] [place] [address] Medication Refill Social History Tobacco Use Types Packs/Day Years Used Date Smoking Tobacco: Never Smokeless Tobacco: Never Alcohol Use Standard Drinks/Week Comments No 0 (1 standard drink = 0.6 oz pur e alcohol) [facility] Utilities Answer Date Recorded In the past 12 months has [employer], gas, oil, or water [employer] threatened to shut off services in your home? Patient declined 03/15/2025 Social Connection and Isolation Panel Answer Date Recorded In a typical week, how many times do you talk on the phone with family, friends, or neighbors? Patient declined 03/15/2025 How often do you get togethe r with friends or relatives? Patient declined 03/15/2025 How often do you attend oriental orthodox or moravian serv ices? Patient declined 03/15/2025 Do you belong to any clubs o r organizations such as oriental orthodox groups, unions, fraternal or athletic groups, or [...] Total Score - Questions 1-9 0 03/04 [facility] Occupat ional [facility] - Occupational Stress Questionnaire Answer Date [...] any time in the past 12 m [facility], were you homeless or living in a half-way (including now)? Patient declined 03/15/2025 Comments No Sex and Gender Information Value Date Recorded Sex Assigned at Not on file Legal Sex Female 11:59 PM CDT Gender Identity Not on file Sexual Orientation Not on file documented as of this encounter Miscellaneous Notes * Telephone Encounter - Roney Arenas MD - 06/02/2025 1:55 PM CDT Refill request approved. * Telephone Encounter - Katya Vicente RN - 06/02/2025 1:31 PM CDT Per nursing clinical judgement, provider to review and approve the medication(s) order(s) if appropriate. Requested Prescriptions Pending Prescriptions Disp Refills fluticasone (FLONASE) 50 MCG/ACT Suspension [Pharmacy Med Name: Fluticasone Propionate 50 MCG/ACT Suspension] 16 g 0 Sig: (FACHOLD) INHALE 2 SPRAYS IN EACH NOSTRIL ONCE EVERY DAY FOR SEASONAL ALLERGIES Nasal Steroids Protocol Passed - 06/02/2025 1:31 PM Passed - Visit with relevant provider in past 12 months or upcoming 90 days Recent Visits Date Type Provider Dept 03/15/25 Office Visit Roney Arenas MD [facility] Showing recent visits within past 365 days and meeting all other requirements Future Appointments No visits were found meeting these conditions. Showing future appointments within next 90 days and meeting all other requirements documented in this encounter Plan of Treatment Upcoming Encounters Date Type Department Care Team (Late st Contact Info) Description 03/21/2026 1:00 PM CDT Office Visit [facility] - Primary Care - [place] [address] [address] Roney Arenas MD [address] [place] [address] documented as of this encounter Visit Diagnoses Not on filedocumented in this encounter Additional Health Concerns Assessment Noted Time PHQ-9 Depression Total Score: 0 03/22/20 23 10:00 AM CDT documented as of this encounter Care Teams Equine Internship Relationship Specialty Start Date End Date Roney Arenas MD [address] [place] [address] PCP - General Internal Medicine 06/04/17 Efrem Hoover MD [address] [place] [address] [place] [address] Consulting Physician Orthopaedic Surgery 06/04/17 Roberto Oakley MD Consulting Physician Dermatology 06/04/17 Hua Balderas MD Consulting Physician Neurology 06/04/17 Cordelia Iqbal MD Consulting Physician Allergy & Immunology 06/04/17 documented as of this encounter
== END 2025-07-26 10:47 | disposition home or self-care (01) ==
LOC: ANHFOHIMG 10:48
PROVIDERS: PCP Internal Medicine; Visit Provider Obstetrics & Gynecology
DX: R92.8 Other abnormal and inconclusive findings on diagnostic imaging of breast (principal)
CPT/HCPCS: 76642; 77062; 77066; G0279